=== PATIENT | female | born 1980 | race Caucasian/White ===

== ENCOUNTER 2023-10-17 22:39 | Inpatient (IN) | payer OTHER ==
[2023-10-17] MEDS: LORazepam 2 MG/ML INJ IV STA ×2 (23:00→23:17)
[2023-10-17] MEDS: SODIUM CHLORIDE 0.9% 1,000 ML IV ONE (23:00)
[2023-10-17 23:02] LABS: Glucose,Whole Blood 273 mg/dL (70-110)
[2023-10-17 23:11] LABS: Basophils % (A) 0 %; Eosinophils # (A) 0.1 k/uL (0-0.7); Eosinophils % (A) 1 %; HGB 18.4 gm/dL (11.4-16.0); Lymphocytes # (A) 1.2 k/uL (1.0-4.8); Lymphocytes % (A) 8 %; MCH 32.8 pg (25.0-35.0); MCHC 34.8 g/dL (31.0-37.0); MCV 94.2 fL (80.0-100.0); Mean Platelet Volume 7.9; Monocytes # (A) 0.4 k/uL (0-1.0); Monocytes % (A) 3 %; Neutrophils # (A) 13.7 k/uL (1.3-7.7); Neutrophils % (A) 88 %; Platelet Count 474 k/uL (150-450); RBC 5.62 m/uL (3.80-5.40); RDW 12.5 % (11.5-15.5); WBC 15.6 k/uL (3.8-10.6)
[2023-10-17 23:17] LABS: VBG PH 7.5 (7.31-7.41)
[2023-10-17 23:23] LABS: INR 1.1 (<1.2); Partial Thromboplastin Time 24.6 sec (22.0-30.0); Prothrombin Time 12.3 sec (10.0-12.5)
[2023-10-17 23:25] LABS: ALT 164 U/L (4-34); AST 105 U/L (14-36); Acetaminophen <10.0 ug/mL; African American GFR (CKD) >90 (>60 ml/min/1.73 sqM); Albumin 5.4 g/dL (3.5-5.0); Alcohol <10 mg/dL; Alkaline Phosphatase 179 U/L (38-126); Anion Gap 22 mmol/L; Blood Urea Nitrogen 26 mg/dL (7-17); Carbon Dioxide 23 mmol/L (22-30); Chloride 98 mmol/L (98-107); Glucose 301 mg/dL (74-99); Non-African American GFR(CKD) >90 (>60 ml/min/1.73 sqM); Potassium 3.7 mmol/L (3.5-5.1); Salicylate <1.0 mg/dL; Sodium 143 mmol/L (137-145); Total Bilirubin 0.5 mg/dL (0.2-1.3); Total Protein 10.6 g/dL (6.3-8.2)
[2023-10-17] MEDS ORDERED: VANCOMYCIN IV PER PHARMACY 1 EACH MISC MISCELLANE PRN (23:37)
[2023-10-18] MEDS: LORazepam 2 MG/ML INJ IV STA ×2 (00:17→00:51)
[2023-10-18] MEDS: SODIUM CHLORIDE 0.9% 1,000 ML IV STA ×2 (00:27→01:11)
[2023-10-18] MEDS: PIPERACILLIN-TAZOBACTAM 3.375 GM in SODIUM CHLORIDE 0.9% 100 ML IVPB STA (00:27)
[2023-10-18] MEDS: VANCOMYCIN 1,000 MG in SODIUM CHLORIDE 0.9% 250 ML IVPB STA (01:02)
[2023-10-18 01:05] LABS: Appearance,Urine Clear (Clear); Bilirubin,Urine Negative (Negative); Blood,Urine Moderate (Negative); Color,Urine Colorless; Glucose,Urine (UA) 2+ (Negative); Hyaline Casts,Urine 3 /lpf (0-2); Ketones,Urine Negative (Negative); Leukocyte Esterase,Urine Negative (Negative); Mucus,Urine Rare /hpf; Nitrite,Urine Positive (Negative); Protein,Urine 2+ (Negative); RBC,Urine 6 /hpf (0-5); Squamous Epithelial Cell,Urine 11 /hpf (0-4); Urobilinogen,Urine <2.0 mg/dL (<2.0); WBC,Urine 4 /hpf (0-5)
[2023-10-18 01:06] LABS: Amphetamine Screen,Urine Detected (NotDetected); Barbiturate Screen,Urine Not Detected (NotDetected); Benzodiazepines Screen,Urine Detected (NotDetected); Cocaine Screen,Urine Detected (NotDetected); Methadone Screen, Urine Not Detected (NotDetected); Opiate Screen,Urine Not Detected (NotDetected); Oxycodone Screen, Urine Not Detected (NotDetected); Phencyclidine Screen,Urine Not Detected (NotDetected); Tricyclic Antidepressant,Urine Not Detected (NotDetected); Urn Cannabinoid Scrn Not Detected (NotDetected)
--- NOTE | 2023-10-18 01:09 | XR ---
EXAM: XR Chest, 2 Views CLINICAL HISTORY: ITS.REASON XR Reason: altered mental status TECHNIQUE: Frontal and lateral views of the chest. COMPARISON: No relevant prior studies available. FINDINGS: Lungs: Unremarkable. No consolidation. Pleural space: Unremarkable. No pneumothorax. Heart: Unremarkable. No cardiomegaly. Mediastinum: Unremarkable. Normal mediastinal contour. Bones/joints: Unremarkable. No acute fracture. IMPRESSION: Normal chest x-rays.
[2023-10-18 01:12] LABS: Specific Gravity,Urine >1.050 (1.001-1.035)
[2023-10-18 01:13] LABS: Bacteria,Urine Occasional /hpf
--- NOTE | 2023-10-18 01:20 | CT ---
EXAM: CT Head Without Intravenous Contrast CLINICAL HISTORY: ITS.REASON CT Reason: Altered mental status TECHNIQUE: Axial computed tomography images of the head/brain without intravenous contrast. CTDI is 49.2 mGy and DLP is 1095.4 mGy-cm. This CT exam was performed using one or more of the following dose reduction techniques: automated exposure control, adjustment of the mA and/or kV according to patient size, and/or use of iterative reconstruction technique. COMPARISON: No relevant prior studies available. FINDINGS: Brain: Unremarkable. No hemorrhage. No significant white matter disease. No edema. Ventricles: Unremarkable. No ventriculomegaly. Bones/joints: Unremarkable. No acute fracture. Soft tissues: Unremarkable. Sinuses: Unremarkable as visualized. No acute sinusitis. Mastoid air cells: Unremarkable as visualized. No mastoid effusion. IMPRESSION: Normal head/brain CT.
--- NOTE | 2023-10-18 01:23 | CT ---
ADDENDUM - Added by Maxi Das MD on 10/18/2023 2:03 AM (-08:00) EXAM: CT Chest With Intravenous Contrast CLINICAL HISTORY: ITS.REASON CT Reason: pain, eval aorta, hypertensive TECHNIQUE: Axial computed tomographic images of the chest with intravenous contrast. CTDI is 1081.1 mGy and DLP is 18.7 mGy-cm. This CT exam was performed using one or more of the following dose reduction techniques: automated exposure control, adjustment of the mA and/or kV according to patient size, and/or use of iterative reconstruction technique. COMPARISON: No relevant prior studies available. FINDINGS: VASCULATURE: Thoracic aorta is unremarkable without dissection, aneurysm, or occlusion. Pulmonary arteries are within normal limits. Lungs are clear without focal infiltrates or effusions. No acute osseous pathology. . Impression: Unremarkable exam EXAM: CT abdomen and Pelvis With Intravenous Contrast CLINICAL HISTORY: ITS.REASON CT Reason: pain, eval aorta, hypertensive TECHNIQUE: Axial computed tomographic images of the abdomen and pelvis with intravenous contrast. CTDI is 1081.1 mGy and DLP is 18.7 mGy-cm. This CT exam was performed using one or more of the following dose reduction techniques: automated exposure control, adjustment of the mA and/or kV according to patient size, and/or use of iterative reconstruction technique. COMPARISON: No relevant prior studies available. FINDINGS: VASCULATURE: Celiac, superior mesenteric and renal arteries are widely patent and unremarkable. Right iliac arteries: No acute findings. No occlusion or significant stenosis. Right femoral/popliteal arteries: No acute findings. No occlusion or significant stenosis. . Left iliac arteries: No acute findings. No occlusion or significant stenosis. Left femoral/popliteal arteries: No acute findings. No occlusion or significant stenosis. PELVIS: Bowel: Unremarkable. No obstruction. No mucosal thickening. Appendix: No findings to suggest acute appendicitis. Bladder: Unremarkable. No mass. Reproductive: Unremarkable as visualized. PELVIS and LOWER EXTREMITIES: Intraperitoneal space: Unremarkable. No significant fluid collection. No free air. Bones/joints: No acute fracture. No dislocation. Soft tissues: Unremarkable. Lymph nodes: Unremarkable. No enlarged lymph nodes. IMPRESSION: Normal arteries of the abdomen and pelvis. EXAM: CT Pelvis With Runoff to the Bilateral Lower Extremities With Intravenous Contrast CLINICAL HISTORY: ITS.REASON CT Reason: pain, eval aorta, hypertensive TECHNIQUE: Axial computed tomographic images of the pelvis and bilateral lower extremities with intravenous contrast. CTDI is 1081.1 mGy and DLP is 18. 7 mGy-cm. This CT exam was performed using one or more of the following dose reduction techniques: automated exposure control, adjustment of the mA and/or kV according to patient size, and/or use of iterative reconstruction technique. COMPARISON: No relevant prior studies available. FINDINGS: VASCULATURE: Right iliac arteries: No acute findings. No occlusion or significant stenosis. Right femoral/popliteal arteries: No acute findings. No occlusion or significant stenosis. Right calf/foot arteries: No acute findings. No occlusion or significant stenosis. Left iliac arteries: No acute findings. No occlusion or significant stenosis. Left femoral/popliteal arteries: No acute findings. No occlusion or significant stenosis. Left calf/foot arteries: No acute findings. No occlusion or significant stenosis. PELVIS: Gallbladder and bile ducts: Postoperative changes prior cholecystectomy. Bowel: Unremarkable. No obstruction. No mucosal thickening. Appendix: No findings to suggest acute appendicitis. Bladder: Unremarkable. No mass. Reproductive: Unremarkable as visualized. PELVIS and LOWER EXTREMITIES: Intraperitoneal space: Unremarkable. No significant fluid collection. No free air. Bones/joints: No acute fracture. No dislocation. Soft tissues: Unremarkable. Lymph nodes: Unremarkable. No enlarged lymph nodes. IMPRESSION: No acute findings in the arteries of the pelvis or bilateral lower extremities. EXAM: CT Pelvis With Runoff to the Bilateral Lower Extremities With Intravenous Contrast CLINICAL HISTORY: ITS.REASON CT Reason: pain, eval aorta, hypertensive TECHNIQUE: Axial computed tomographic images of the pelvis and bilateral lower extremities with intravenous contrast. CTDI is 1081.1 mGy and DLP is 18. 7 mGy-cm. This CT exam was performed using one or more of the following dose reduction techniques: automated exposure control, adjustment of the mA and/or kV according to patient size, and/or use of iterative reconstruction technique. COMPARISON: No relevant prior studies available. FINDINGS: VASCULATURE: Right iliac arteries: No acute findings. No occlusion or significant stenosis. Right femoral/popliteal arteries: No acute findings. No occlusion or significant stenosis. Right calf/foot arteries: No acute findings. No occlusion or significant stenosis. Left iliac arteries: No acute findings. No occlusion or significant stenosis. Left femoral/popliteal arteries: No acute findings. No occlusion or significant stenosis. Left calf/foot arteries: No acute findings. No occlusion or significant stenosis. PELVIS: Bowel: Unremarkable. No obstruction. No mucosal thickening. Appendix: No findings to suggest acute appendicitis. Bladder: Unremarkable. No mass. Reproductive: Unremarkable as visualized. PELVIS and LOWER EXTREMITIES: Intraperitoneal space: Unremarkable. No significant fluid collection. No free air. Bones/joints: No acute fracture. No dislocation. Soft tissues: Unremarkable. Lymph nodes: Unremarkable. No enlarged lymph nodes. IMPRESSION: Normal arteries of the pelvis and bilateral lower extremities. <MYCVCSECTION> Communications: 10/18/23 02:02 Call From [facility] on 10/17 01:55 (-05:00)
--- NOTE | 2023-10-18 01:48 | ED ---
General Adult HPI - General Chief complaint: Altered Mental Status Stated complaint: AMS Time Seen by Provider: 10/17/23 22:48 Source: patient, EMS, RN notes reviewed, old records reviewed Mode of arrival: EMS Limitations: no limitations - History of Present Illness Initial comments: Is a 43-year-old female with past medical history remarkable for polysubstance abuse presents emergency department for altered mental status. [facility]. Has been there for approximately 1 day. Has a history of cocaine abuse, meth abuse, opiate abuse. Patient is currently alert and oriented x 2. Unknown what year it is. States she has chronic body pain. Would not answer when she last used any drugs. Possible concern for drug use despite being at [facility]. Was found to be hypertensive, confused and was sent here for further evaluation. Did receive a dose of clonidine prior to transfer. - Related Data Home Medications Medication Instructions Recorded Confirmed DAPTOmycin [Cubicin] 400 mg IV DAILY 07/28/15 08/26/15 Previous Rx's Medication Instructions Recorded Ibuprofen [Motrin] 400 mg PO Q8H PRN #0 07/16/15 Nicotine 14Mg/24Hr Patch [Habitrol] 1 patch TRANSDERM DAILY #30 patch 07/16/15 Nystatin 100,000Unit/gm Cream 1 applic TOPICAL BID applic 07/16/15 [Mycostatin Cream] Allergies Allergy/AdvReac Type Severity Reaction Status Date / Time codeine Allergy Nausea & Verified 08/26/15 17:27 Vomiting lidocaine Allergy Anaphylaxis Verified 08/26/15 17:27 Review of Systems ROS Statement: Those systems with pertinent positive or pertinent negative responses have been documented in the HPI. Review of Systems: CONST: Denies fever EYES: Denies blurry vision ENT: Denies nasal congestion C/V: Denies Chest pain RESP: Denies shortness of breath GI: Denies abdominal pain : Denies dysuria SKIN: Denies rash. MSK: Denies joint pain. NEURO: Denies headache ROS Other: All systems not noted in ROS Statement are negative. Past Medical History Past Medical History: No Reported History, Seizure Disorder Additional Past Medical History / Comment(s): bilateral torn rotator cuffs surgery 2009, bilateral carpal tunnel. MRSA infection Right 5th toe. Open wound right 5th toe History of Any Multi-Drug Resistant Organisms: MRSA Date of last positivie culture/infection: 07/10/2015 MDRO Source:: Right foot fifth digit Past Surgical History: Appendectomy, Section, Cholecystectomy, Orthopedic Surgery Additional Past Surgical History / Comment(s): EPILYPSY, BILATERAL TORN ROTATOR CUFFS Past Anesthesia/Blood Transfusion Reactions: No Reported Reaction Past Psychological History: No Psychological Hx Reported Smoking Status: Vaper Past Alcohol Use History: Rare Past Drug Use History: None Reported - Past Family History Father Family Medical History: CVA/TIA Additional Family Medical History / Comment(s): 2011 Mother Family Medical History: No Reported History Additional Family Medical History / Comment(s): arthritis General Exam - General Exam Comments Initial Comments: General: Appears anxious, agitated. HEAD: Normal with no signs of head trauma. EYES: PERRLA, EOMI, conjunctiva normal, no discharge. Pupils are 2 mm and equal bilaterally. ENT: Hearing grossly intact, normal oropharynx. Dry mucous membranes RESPIRATORY: Clear breath sounds bilaterally. No wheezes, rales, or rhonchi. C/V: Tachycardic with a regular rhythm.. S1 and S2 auscultated, no edema, peripheral pulses 2+ and intact throughout ABD: Abd is soft, nontender, nondistended EXT: Normal range of motion, no obvious deformity SKIN: Diffuse skin urban on arms likely from prior drug use. NEURO: Alert and oriented x 2. No focal neurological deficits. Moving all 4 extremities without issue. Is following some basic commands. Does seem confused. Limitations: no limitations Course Vital Signs 10/17/23 10/17/23 10/18/23 22:40 23:14 00:47 Temperature 99.1 F Pulse Rate 105 H 93 99 Respiratory 20 22 20 Rate Blood Pressure 212/162 203/143 163/72 O2 Sat by Pulse 100 100 99 Oximetry 10/18/23 03:45 Temperature Pulse Rate 101 H Respiratory 22 Rate Blood Pressure 110/73 O2 Sat by Pulse 99 Oximetry Procedures - Sepsis Sepsis Focused Exam #1 Time Sepsis Criteria Met: 23:38 Sepsis Focused Exam Date: 10/18/23 Sepsis Focused Exam Time: 01:38 Sepsis Focused Exam Complete: Yes Vital Signs & RN Notes Reviewed: Yes Capillary Refill: > 2 Seconds: Fingers, Toes Peripheral Pulses: Normal: Radial (R), Radial (L) Skin Color: Normal for Patient Respiratory Exam: normal lung sounds Cardiovascular Exam: regular rate, normal rhythm Medical Decision Making - Medical Decision Making Was pt. sent in by a medical professional or institution (TOMMIE Govea, [employer] BLENDER, urgent care, hospital, or custodial...) When possible be specific @ -No Did you speak to anyone other than the patient for history (EMS, parent, family, police, friend...)? What history was obtained from this source @ -Nursing staff spoke with staff at [facility]. Did you review nursing and triage notes (agree or disagree)? Why? @ -I reviewed and agree with nursing and triage notes Were old charts reviewed (outside hosp., previous admission, EMS record, old EKG, old radiological studies, urgent care reports/EKG's, custodial records)? Report findings @ -Old charts reviewed Differential Diagnosis (chest pain, altered mental status, abdominal pain women, abdominal pain men, vaginal bleeding, weakness, fever, dyspnea, syncope, headache, dizziness, GI bleed, back pain, seizure, CVA, palpatations, mental health, musculoskeletal)? @ -Differential Altered Mental Status: Hypoglycemia, DKA, hypercapnia, ETOH, overdose, CO poisoning, trauma, myxedema coma, HTN encephalopathy, infection, encephalitis, psychosis, intercranial hemorrhage, hepatic encephalopathy, meningitis, CVA, this is not meant to be an all-inclusive list EKG interpreted by me (3pts min.). @ -As above X-rays interpreted by me (1pt min.). @ -Chest x-ray shows no obvious acute cardiopulmonary process. CT interpreted by me (1pt min.). @ -CT brain reveals no obvious acute intracranial process or injury. CT angiogram of the chest abdomen pelvis shows no obvious acute process at this time. U/S interpreted by me (1pt. min.). @ -None done What testing was considered but not performed or refused? (CT, X-rays, U/S, labs)? Why? @ -None What meds were considered but not given or refused? Why? @ -Antihypertensive medications were considered however I do believe that hypertension likely secondary to polysubstance abuse and we will treat with Ativan at this time. Has a history of cocaine abuse and we will avoid beta- blockers. Did you discuss the management of the patient with other professionals (professionals i.e. , TOMMIE, [employer] BLENDER, lab, RT, psych nurse, social insurance administrator, wood and wood products labourer, teacher, training systems officer, rehabilitation case coordinator)? Give summary @ -Discussed with the city call admitting physician, Dr. Haro who accepted the patient onto their service. Was smoking cessation discussed for >3mins.? @ -No Was critical care preformed (if so, how long)? @ -Yes, 38 minutes Were there social determinants of health that impacted care today? How? (Homelessness, low income, unemployed, alcoholism, drug addiction, transportation, low edu. Level, literacy, decrease access to med. care, long term, rehab)? @ -No Was there de-escalation of care discussed even if they declined (Discuss DNR or withdrawal of care, Hospice)? DNR status @ -No What co-morbidities impacted this encounter? (DM, HTN, Smoking, COPD, CAD, Cancer, CVA, ARF, Chemo, Hep., AIDS, mental health diagnosis, sleep apnea, morbid obesity)? @ -Polysubstance abuse Was patient admitted / discharged? Hospital course, mention meds given and route, prescriptions, significant lab abnormalities, going to OR and other pertinent info. @ -Presents with altered mentation. Is hypertensive and tachycardic. Appears significantly dehydrated. Patient will be administered multiple fluid boluses, as well as Ativan for some mild agitation as well as her hypertension. Patient was in agreement this plan. She is confused to year. She is hypertensive on arrival but I do believe this is all likely secondary to her polysubstance abuse. She does have a history of cocaine abuse and therefore beta-blockers will be avoided. We will attempt to treat hypertension initially with just benzodiazepines. He did respond well to these. Systolics improved to the 150s to 160s. EKG shows nonspecific findings. Laboratory studies remarkable for what appears to be hemoconcentration with elevated white count, hemoglobin, as well as platelets. Lactic acid is elevated at 7.0. Troponin mildly elevated at 0.087. LFTs mildly elevated and nonspecific. Remainder the labs unremarkable other than positive UDS for amphetamines, meth, benzos, cocaine. Urinalysis is positive for blood and nitrites but negative for other sources of infection including no significant white blood cell count. Acetone is negative. Patient CT brain, CT angiogram of the aorta unremarkable. Chest x-ray unremarkable. Patient met sepsis criteria at 2338. Patient has received 1 L fluid bolus and will receive an additional liter and be placed on maintenance fluids which will meet the 30 cc/kg fluid bolus. Broad-spectrum antibiotics will be initiated. Lactic acid is 7 and we will repeat it. Blood cultures obtained and sent. At this time, patient will be admitted to the hospital. I will hold off with placement orders for the patient as we will repeat the lactic acid which I believe is likely secondary to dehydration and polysubstance abuse. Cannot rule out sepsis at this time and patient is being covered for it with broad-spectrum antibiotics. Patient has received multiple doses of Ativan which has helped with her vital signs as well as her slight agitation. She is still able to follow basic commands. She is still confused. She will be admitted at this ti ny. I spoke with the admitting physician, Dr. Haro who accepted the patient. Neurology consulted for altered mentation. Troponin slightly elevated but I do believe it is likely secondary to her drug abuse, dehydration, as well as possible sepsis. Will continue to trend. Cardiology consulted. Repeat lactic acid improved to 2.6. Undiagnosed new problem with uncertain prognosis? @ -No Drug Therapy requiring intensive monitoring for toxicity (Heparin, Nitro, Insulin, Cardizem)? @ -No Were any procedures done? @ -No Diagnosis/symptom? @ -Sepsis, polysubstance abuse, altered mental status, dehydration, elevated troponin, hypertension Acute, or Chronic, or Acute on Chronic? @ -Acute Uncomplicated (without systemic symptoms) or Complicated (systemic symptoms)? @ -Complicated Side effects of treatment? @ -No Exacerbation, Progression, or Severe Exacerbation? @ -No Poses a threat to life or bodily function? How? (Chest pain, USA, MT, pneumonia, PE, COPD, DKA, ARF, appy, cholecystitis, CVA, Diverticulitis, Homicidal, Suicidal, threat to staff... and all critical care pts) @ -Yes - Lab Data Result diagrams: 10/17/23 23:00 10/17/23 23:00 Lab Results 10/17/23 10/17/23 10/17/23 Range/Units 23:00 23:00 23:00 WBC 15.6 H (3.8-10.6) k/uL RBC 5.62 H (3.80-5.40) m/uL Hgb 18.4 H (11.4-16.0) gm/dL Hct 53.0 H (34.0-46.0) % MCV 94.2 (80.0-100.0) fL MCH 32.8 (25.0-35.0) pg MCHC 34.8 (31.0-37.0) g/dL RDW 12.5 (11.5-15.5) % Plt Count 474 H (150-450) k/uL MPV 7.9 Neutrophils % 88 % Lymphocytes % 8 % Monocytes % 3 % Eosinophils % 1 % Basophils % 0 % Neutrophils # 13.7 H (1.3-7.7) k/uL Lymphocytes # 1.2 (1.0-4.8) k/uL Monocytes # 0.4 (0-1.0) k/uL Eosinophils # 0.1 (0-0.7) k/uL Basophils # 0.0 (0-0.2) k/uL PT 12.3 (10.0-12.5) sec INR 1.1 (<1.2) APTT 24.6 (22.0-30.0) sec VBG pH (7.31-7.41) VBG pCO2 (37-51) mmHg VBG HCO3 (24-28) mmol/L Sodium (137-145) mmol/L Potassium (3.5-5.1) mmol/L Chloride (98-107) mmol/L Carbon Dioxide (22-30) mmol/L Anion Gap mmol/L BUN (7-17) mg/dL Creatinine (0.52-1.04) mg/dL Est GFR (CKD-EPI)AfAm (>60 ml/min/1.73 sqM) Est GFR (CKD-EPI)NonAf (>60 ml/min/1.73 sqM) Glucose (74-99) mg/dL POC Glucose (mg/dL) (70-110) mg/dL POC Glu Supervisor Pipe Finishing ID Lactic Ac Sepsis Rflx Plasma Lactic Acid Louie (0.7-2.0) mmol/L Calcium (8.4-10.2) mg/dL Total Bilirubin (0.2-1.3) mg/dL AST (14-36) U/L ALT (4-34) U/L Alkaline Phosphatase (38-126) U/L Ammonia (<30) umol/L Troponin I (0.000-0.034) ng/mL Total Protein (6.3-8.2) g/dL Albumin (3.5-5.0) g/dL Urine Color Urine Appearance (Clear) Urine pH (5.0-8.0) Ur Specific [place] (1.001-1.035) Urine Protein (Negative) Urine Glucose (UA) (Negative) Urine Ketones (Negative) Urine Blood (Negative) Urine Nitrite (Negative) Urine Bilirubin (Negative) Urine Urobilinogen (<2.0) mg/dL Ur Leukocyte Esterase (Negative) Urine RBC (0-5) /hpf Urine WBC (0-5) /hpf Ur Squamous Epith Cells (0-4) /hpf Urine Bacteria (None) /hpf Hyaline Casts (0-2) /lpf Urine Mucus (None) /hpf Salicylates mg/dL Urine Opiates Screen Not Detected (NotDetected) Ur Oxycodone Screen Not Detected (NotDetected) Urine Methadone Screen Not Detected (NotDetected) Acetaminophen ug/mL Ur Barbiturates Screen Not Detected (NotDetected) U Tricyclic Antidepress Not Detected (NotDetected) Ur Phencyclidine Scrn Not Detected (NotDetected) Ur Amphetamines Screen Detected H (NotDetected) U Methamphetamines Scrn Detected H (NotDetected) U Benzodiazepines Scrn Detected H (NotDetected) Urine Cocaine Screen Detected H (NotDetected) U Marijuana (THC) Screen Not Detected (NotDetected) Serum Alcohol mg/dL Acetone, Qual (Negative) Influenza Type A (PCR) (Not Detectd) Influenza Type B (PCR) (Not Detectd) RSV (PCR) (Not Detectd) SARS-CoV-2 (PCR) (Not Detectd) 10/17/23 10/17/23 10/17/23 Range/Units 23:00 23:00 23:00 WBC (3.8-10.6) k/uL RBC (3.80-5.40) m/uL Hgb (11.4-16.0) gm/dL Hct (34.0-46.0) % MCV (80.0-100.0) fL MCH (25.0-35.0) pg MCHC (31.0-37.0) g/dL RDW (11.5-15.5) % Plt Count (150-450) k/uL MPV Neutrophils % % Lymphocytes % % Monocytes % % Eosinophils % % Basophils % % Neutrophils # (1.3-7.7) k/uL Lymphocytes # (1.0-4.8) k/uL Monocytes # (0-1.0) k/uL Eosinophils # (0-0.7) k/uL Basophils # (0-0.2) k/uL PT (10.0-12.5) sec INR (<1.2) APTT (22.0-30.0) sec VBG pH (7.31-7.41) VBG pCO2 (37-51) mmHg VBG HCO3 (24-28) mmol/L Sodium 143 (137-145) mmol/L Potassium 3.7 (3.5-5.1) mmol/L Chloride 98 (98-107) mmol/L Carbon Dioxide 23 (22-30) mmol/L Anion Gap 22 mmol/L BUN 26 H (7-17) mg/dL Creatinine 0.69 (0.52-1.04) mg/dL Est GFR (CKD-EPI)AfAm >90 (>60 ml/min/1.73 sqM) Est GFR (CKD-EPI)NonAf >90 (>60 ml/min/1.73 sqM) Glucose 301 H (74-99) mg/dL POC Glucose (mg/dL) 273 H (70-110) mg/dL POC Glu Supervisor P[employer] Finishing ID Benjie Garcia Lactic Ac Sepsis Rflx Plasma Lactic Acid Louie (0.7-2.0) mmol/L Calcium 11.0 H (8.4-10.2) mg/dL Total Bilirubin 0.5 (0.2-1.3) mg/dL AST 105 H (14-36) U/L ALT 164 H (4-34) U/L Alkaline Phosphatase 179 H (38-126) U/L Ammonia (<30) umol/L Troponin I 0.087 H* (0.000-0.034) ng/mL Total Protein 10.6 H (6.3-8.2) g/dL Albumin 5.4 H (3.5-5.0) g/dL Urine Color Urine Appearance (Clear) Urine pH (5.0-8.0) Ur Specific [place] (1.001-1.035) Urine Protein (Negative) Urine Glucose (UA) (Negative) Urine Ketones (Negative) Urine Blood (Negative) Urine Nitrite (Negative) Urine Bilirubin (Negative) Urine Urobilinogen (<2.0) mg/dL Ur Leukocyte Esterase (Negative) Urine RBC (0-5) /hpf Urine WBC (0-5) /hpf Ur Squamous Epith Cells (0-4) /hpf Urine Bacteria (None) /hpf Hyaline Casts (0-2) /lpf Urine Mucus (None) /hpf Salicylates <1.0 mg/dL Urine Opiates Screen (NotDetected) Ur Oxycodone Screen (NotDetected) Urine Methadone Screen (NotDetected) Acetaminophen <10.0 ug/mL Ur Barbiturates Screen (NotDetected) U Tricyclic Antidepress (NotDetected) Ur Phencyclidine Scrn (NotDetected) Ur Amphetamines Screen (NotDetected) U Methamphetamines Scrn (NotDetected) U Benzodiazepines Scrn (NotDetected) Urine Cocaine Screen (NotDetected) U Marijuana (THC) Screen (NotDetected) Serum Alcohol <10 mg/dL Acetone, Qual (Negative) Influenza Type A (PCR) (Not Detectd) Influenza Type B (PCR) (Not Detectd) RSV (PCR) (Not Detectd) SARS-CoV-2 (PCR) (Not Detectd) 10/17/23 10/17/23 10/17/23 Range/Units 23:02 23:02 23:02 WBC (3.8-10.6) k/uL RBC (3.80-5.40) m/uL Hgb (11.4-16.0) gm/dL Hct (34.0-46.0) % MCV (80.0-100.0) fL MCH (25.0-35.0) pg MCHC (31.0-37.0) g/dL RDW (11.5-15.5) % Plt Count (150-450) k/uL MPV Neutrophils % % Lymphocytes % % Monocytes % % Eosinophils % % Basophils % % Neutrophils # (1.3-7.7) k/uL Lymphocytes # (1.0-4.8) k/uL Monocytes # (0-1.0) k/uL Eosinophils # (0-0.7) k/uL Basophils # (0-0.2) k/uL PT (10.0-12.5) sec INR (<1.2) APTT (22.0-30.0) sec VBG pH 7.50 H (7.31-7.41) VBG pCO2 31 L (37-51) mmHg VBG HCO3 24 (24-28) mmol/L Sodium (137-145) mmol/L Potassium (3.5-5.1) mmol/L Chloride (98-107) mmol/L Carbon Dioxide (22-30) mmol/L Anion Gap mmol/L BUN (7-17) mg/dL Creatinine (0.52-1.04) mg/dL Est GFR (CKD-EPI)AfAm (>60 ml/min/1.73 sqM) Est GFR (CKD-EPI)NonAf (>60 ml/min/1.73 sqM) Glucose (74-99) mg/dL POC Glucose (mg/dL) (70-110) mg/dL POC Glu Supervisor Pipe Finishing ID Lactic Ac Sepsis Rflx Plasma Lactic Acid Louie 7.0 H* (0.7-2.0) mmol/L Calcium (8.4-10.2) mg/dL Total Bilirubin (0.2-1.3) mg/dL AST (14-36) U/L ALT (4-34) U/L Alkaline Phosphatase (38-126) U/L Ammonia 14 (<30) umol/L Troponin I (0.000-0.034) ng/mL Total Protein (6.3-8.2) g/dL Albumin (3.5-5.0) g/dL Urine Color Colorless Urine Appearance Clear (Clear) Urine pH 7.0 (5.0-8.0) Ur Specific [place] >1.050 H (1.001-1.035) Urine Protein 2+ H (Negative) Urine Glucose (UA) 2+ H (Negative) Urine Ketones Negative (Negative) Urine Blood Moderate H (Negative) Urine Nitrite Positive H (Negative) Urine Bilirubin Negative (Negative) Urine Urobilinogen <2.0 (<2.0) mg/dL Ur Leukocyte Esterase Negative (Negative) Urine RBC 6 H (0-5) /hpf Urine WBC 4 (0-5) /hpf Ur Squamous Epith Cells 11 H (0-4) /hpf Urine Bacteria Occasional H (None) /hpf Hyaline Casts 3 H (0-2) /lpf Urine Mucus Rare H (None) /hpf Salicylates mg/dL Urine Opiates Screen (NotDetected) Ur Oxycodone Screen (NotDetected) Urine Methadone Screen (NotDetected) Acetaminophen ug/mL Ur Barbiturates Screen (NotDetected) U Tricyclic Antidepress (NotDetected) Ur Phencyclidine Scrn (NotDetected) Ur Amphetamines Screen (NotDetected) U Methamphetamines Scrn (NotDetected) U Benzodiazepines Scrn (NotDetected) Urine Cocaine Screen (NotDetected) U Marijuana (THC) Screen (NotDetected) Serum Alcohol mg/dL Acetone, Qual (Negative) Influenza Type A (PCR) (Not Detectd) Influenza Type B (PCR) (Not Detectd) RSV (PCR) (Not Detectd) SARS-CoV-2 (PCR) (Not Detectd) 10/17/23 10/18/23 10/18/23 Range/Units 23:36 00:00 00:43 WBC (3.8-10.6) k/uL RBC (3.80-5.40) m/uL Hgb (11.4-16.0) gm/dL Hct (34.0-46.0) % MCV (80.0-100.0) fL MCH (25.0-35.0) pg MCHC (31.0-37.0) g/dL RDW (11.5-15.5) % Plt Count (150-450) k/uL MPV Neutrophils % % Lymphocytes % % Monocytes % % Eosinophils % % Basophils % % Neutrophils # (1.3-7.7) k/uL Lymphocytes # (1.0-4.8) k/uL Monocytes # (0-1.0) k/uL Eosinophils # (0-0.7) k/uL Basophils # (0-0.2) k/uL PT (10.0-12.5) sec INR (<1.2) APTT (22.0-30.0) sec VBG pH (7.31-7.41) VBG pCO2 (37-51) mmHg VBG HCO3 (24-28) mmol/L Sodium (137-145) mmol/L Potassium (3.5-5.1) mmol/L Chloride (98-107) mmol/L Carbon Dioxide (22-30) mmol/L Anion Gap mmol/L BUN (7-17) mg/dL Creatinine (0.52-1.04) mg/dL Est GFR (CKD-EPI)AfAm (>60 ml/min/1.73 sqM) Est GFR (CKD-EPI)NonAf (>60 ml/min/1.73 sqM) Glucose (74-99) mg/dL POC Glucose (mg/dL) (70-110) mg/dL POC Glu Supervisor Pipe Finishing ID Lactic Ac Sepsis Rflx Y Plasma Lactic Acid Louie (0.7-2.0) mmol/L Calcium (8.4-10.2) mg/dL Total Bilirubin (0.2-1.3) mg/dL AST (14-36) U/L ALT (4-34) U/L Alkaline Phosphatase (38-126) U/L Ammonia (<30) umol/L Troponin I (0.000-0.034) ng/mL Total Protein (6.3-8.2) g/dL Albumin (3.5-5.0) g/dL Urine Color Urine Appearance (Clear) Urine pH (5.0-8.0) Ur Specific [place] (1.001-1.035) Urine Protein (Negative) Urine Glucose (UA) (Negative) Urine Ketones (Negative) Urine Blood (Negative) Urine Nitrite (Negative) Urine Bilirubin (Negative) Urine Urobilinogen (<2.0) mg/dL Ur Leukocyte Esterase (Negative) Urine RBC (0-5) /hpf Urine WBC (0-5) /hpf Ur Squamous Epith Cells (0-4) /hpf Urine Bacteria (None) /hpf Hyaline Casts (0-2) /lpf Urine Mucus (None) /hpf Salicylates mg/dL Urine Opiates Screen (NotDetected) Ur Oxycodone Screen (NotDetected) Urine Methadone Screen (NotDetected) Acetaminophen ug/mL Ur Barbiturates Screen (NotDetected) U Tricyclic Antidepress (NotDetected) Ur Phencyclidine Scrn (NotDetected) Ur Amphetamines Screen (NotDetected) U Methamphetamines Scrn (NotDetected) U Benzodiazepines Scrn (NotDetected) Urine Cocaine Screen (NotDetected) U Marijuana (THC) Screen (NotDetected) Serum Alcohol mg/dL Acetone, Qual Negative (Negative) Influenza Type A (PCR) Not Detected (Not Detectd) Influenza Type B (PCR) Not Detected (Not Detectd) RSV (PCR) Not Detected (Not Detectd) SARS-CoV-2 (PCR) Not Detected (Not Detectd) 10/18/23 10/18/23 Range/Units 02:20 02:57 WBC (3.8-10.6) k/uL RBC (3.80-5.40) m/uL Hgb (11.4-16.0) gm/dL Hct (34.0-46.0) % MCV (80.0-100.0) fL MCH (25.0-35.0) pg MCHC (31.0-37.0) g/dL RDW (11.5-15.5) % Plt Count (150-450) k/uL MPV Neutrophils % % Lymphocytes % % Monocytes % % Eosinophils % % Basophils % % Neutrophils # (1.3-7.7) k/uL Lymphocytes # (1.0-4.8) k/uL Monocytes # (0-1.0) k/uL Eosinophils # (0-0.7) k/uL Basophils # (0-0.2) k/uL PT (10.0-12.5) sec INR (<1.2) APTT (22.0-30.0) sec VBG pH (7.31-7.41) VBG pCO2 (37-51) mmHg VBG HCO3 (24-28) mmol/L Sodium (137-145) mmol/L Potassium (3.5-5.1) mmol/L Chloride (98-107) mmol/L Carbon Dioxide (22-30) mmol/L Anion Gap mmol/L BUN (7-17) mg/dL Creatinine (0.52-1.04) mg/dL Est GFR (CKD-EPI)AfAm (>60 ml/min/1.73 sqM) Est GFR (CKD-EPI)NonAf (>60 ml/min/1.73 sqM) Glucose (74-99) mg/dL POC Glucose (mg/dL) (70-110) mg/dL POC Glu Supervisor Pipe Finishing ID Lactic Ac Sepsis Rflx Y Plasma Lactic Acid Louie 2.6 H* (0.7-2.0) mmol/L Calcium (8.4-10.2) mg/dL Total Bilirubin (0.2-1.3) mg/dL AST (14-36) U/L ALT (4-34) U/L Alkaline Phosphatase (38-126) U/L Ammonia (<30) umol/L Troponin I (0.000-0.034) ng/mL Total Protein (6.3-8.2) g/dL Albumin (3.5-5.0) g/dL Urine Color Urine Appearance (Clear) Urine pH (5.0-8.0) Ur Specific [place] (1.001-1.035) Urine Protein (Negative) Urine Glucose (UA) (Negative) Urine Ketones (Negative) Urine Blood (Negative) Urine Nitrite (Negative) Urine Bilirubin (Negative) Urine Urobilinogen (<2.0) mg/dL Ur Leukocyte Esterase (Negative) Urine RBC (0-5) /hpf Urine WBC (0-5) /hpf Ur Squamous Epith Cells (0-4) /hpf Urine Bacteria (None) /hpf Hyaline Casts (0-2) /lpf Urine Mucus (None) /hpf Salicylates mg/dL Urine Opiates Screen (NotDetected) Ur Oxycodone Screen (NotDetected) Urine Methadone Screen (NotDetected) Acetaminophen ug/mL Ur Barbiturates Screen (NotDetected) U Tricyclic Antidepress (NotDetected) Ur Phencyclidine Scrn (NotDetected) Ur Amphetamines Screen (NotDetected) U Methamphetamines Scrn (NotDetected) U Benzodiazepines Scrn (NotDetected) Urine Cocaine Screen (NotDetected) U Marijuana (THC) Screen (NotDetected) Serum Alcohol mg/dL Acetone, Qual (Negative) Influenza Type A (PCR) (Not Detectd) Influenza Type B (PCR) (Not Detectd) RSV (PCR) (Not Detectd) SARS-CoV-2 (PCR) (Not Detectd) - EKG Data -: EKG Interpreted by Me EKG Comments: 12-lead Electrocardiogram Interpretation Note EKG was reviewed and interpreted by myself. 12-lead ECG performed at 2322 is interpreted by me as revealing normal sinus rhythm at a rate of 87 beats per minute. [place] is normal. NH interval is 121 ms, QRS duration is 90 ms, QTc is [address]-T segment depressions that are mild, however there is a good amount of baseline artifact.. R wave progression across the precordium was satisfactory.. Critical Care Time Critical Care Time: Yes Total Critical Care Time: 38 Disposition Clinical Impression: Altered mental status, Polysubstance abuse, Dehydration, Sepsis, Elevated troponin, Hypertension Disposition: ADMITTED IP TO THIS HOSP Condition: Serious Time of Disposition: 02:00
[2023-10-18] MEDS ORDERED: NALOXONE 0.4 MG/ML 1 ML VIAL IV PRN (02:58)
--- NOTE | 2023-10-18 05:43 | P.HPIM ---
History of Present Illness H&P Date: 10/18/23 Chief Complaint: Mental status 43-year-old female with polysubstance abuse Patient's seems to be confused currently at time of my evaluation she is sleeping difficult to arise, however was alert oriented x 2 earlier in the ED per their documentation history was obtained by talking to medical staff in the ED and discussing the case with ED doctor reviewing the chart. Patient has history of polysubstance abuse she has been at [facility] for a day staff was suspecting that she was still using drugs while there she was found to have altered mentation and was brought into the hospital for further evaluation no further history is obtainable at this time. Patient is noticed to have multiple entrance wounds and skin lesions over her hands suspicious for skin popping or IV drug use review of systems Unable to obtain due to patient mental status on exam Constitutional: Sleeping difficult to to wake up Eyes: Anicteric sclerae, moist conjunctiva, Pupils equal round reactive to light ENMT: NC/AT Neck: Supple, no masses, or JVD No carotid bruits No thyromegaly Lungs: Clear to auscultation Clear to percussion Normal respiratory effort, no accessory muscle use Cardiovascular: Heart regular in rate and rhythm, No murmurs, gallops, or rubs No peripheral edema Abdominal: Soft Nontender, no guarding, rebound or rigidity Abdomen moving with respiration Normoactive bowel sounds No hepatomegaly, No splenomegaly No palpable mass No abdominal wall hernia noted Skin: Multiple skin lesions over bilateral hands suspicious for skin popping or IV drug abuse. Swelling of the right hand Extremities: No digital cyanosis No clubbing Pedal pulses intact and symmetrical Radial pulses intact and symmetrical No calf tenderness Psychiatric: Patient sleeping difficult to arouse Neuro unable to obtain at this time patient uncooperative Past Medical History Past Medical History: No Reported History, Seizure Disorder Additional Past Medical History / Comment(s): bilateral torn rotator cuffs surgery 2009, bilateral carpal tunnel. MRSA infection Right 5th toe. Open wound right 5th toe History of Any Multi-Drug Resistant Organisms: MRSA Date of last positivie culture/infection: 07/10/2015 MDRO Source:: Right foot fifth digit Past Surgical History: Appendectomy, Section, Cholecystectomy, Orthopedic Surgery Additional Past Surgical History / Comment(s): EPILYPSY, BILATERAL TORN ROTATOR CUFFS Past Anesthesia/Blood Transfusion Reactions: No Reported Reaction Past Psychological History: No Psychological Hx Reported Smoking Status: Vaper Past Alcohol Use History: Rare Past Drug Use History: None Reported - Past Family History Father Family Medical History: CVA/TIA Additional Family Medical History / Comment(s): 2011 Mother Family Medical History: No Reported History Additional Family Medical History / Comment(s): arthritis Medications and Allergies Home Medications Medication Instructions Recorded Confirmed Type Ibuprofen [Motrin] 400 mg PO Q8H PRN #0 07/16/15 08/26/15 Rx Nicotine 14Mg/24Hr Patch [Habitrol] 1 patch TRANSDERM DAILY #30 patch 07/16/15 08/26/15 Rx Nystatin 100,000Unit/gm Cream 1 applic TOPICAL BID applic 07/16/15 08/26/15 Rx [Mycostatin Cream] DAPTOmycin [Cubicin] 400 mg IV DAILY 07/28/15 08/26/15 History Allergies Allergy/AdvReac Type Severity Reaction Status Date / Time codeine Allergy Nausea & Verified 08/26/15 17:27 Vomiting lidocaine Allergy Anaphylaxis Verified 08/26/15 17:27 Physical Exam Vitals: Vital Signs Temp Pulse Resp BP Pulse Ox 10/18/23 00:47 99 20 163/72 99 10/17/23 23:14 93 22 203/143 100 10/17/23 22:40 99.1 F 105 H 20 212/162 100 Intake and Output 10/17/23 10/17/23 10/18/23 14:59 22:59 06:59 Other: Weight 54.431 kg Results CBC & Chem 7: 10/17/23 23:00 10/17/23 23:00 Labs: Abnormal Lab Results - Last 24 Hours (Table) 10/17/23 10/17/23 10/17/23 Range/Units 23:00 23:00 23:00 WBC 15.6 H (3.8-10.6) k/uL RBC 5.62 H (3.80-5.40) m/uL Hgb 18.4 H (11.4-16.0) gm/dL Hct 53.0 H (34.0-46.0) % Plt Count 474 H (150-450) k/uL Neutrophils # 13.7 H (1.3-7.7) k/uL VBG pH (7.31-7.41) VBG pCO2 (37-51) mmHg BUN 26 H (7-17) mg/dL Glucose 301 H (74-99) mg/dL POC Glucose (mg/dL) (70-110) mg/dL Plasma Lactic Acid Louie (0.7-2.0) mmol/L Calcium 11.0 H (8.4-10.2) mg/dL AST 105 H (14-36) U/L ALT 164 H (4-34) U/L Alkaline Phosphatase 179 H (38-126) U/L Troponin I (0.000-0.034) ng/mL Total Protein 10.6 H (6.3-8.2) g/dL Albumin 5.4 H (3.5-5.0) g/dL Ur Specific [place] (1.001-1.035) Urine Protein (Negative) Urine Glucose (UA) (Negative) Urine Blood (Negative) Urine Nitrite (Negative) Urine RBC (0-5) /hpf Ur Squamous Epith Cells (0-4) /hpf Urine Bacteria (None) /hpf Hyaline Casts (0-2) /lpf Urine Mucus (None) /hpf Ur Amphetamines Screen Detected H (NotDetected) U Methamphetamines Scrn Detected H (NotDetected) U Benzodiazepines Scrn Detected H (NotDetected) Urine Cocaine Screen Detected H (NotDetected) 10/17/23 10/17/23 10/17/23 Range/Units 23:00 23:00 23:02 WBC (3.8-10.6) k/uL RBC (3.80-5.40) m/uL Hgb (11.4-16.0) gm/dL Hct (34.0-46.0) % Plt Count (150-450) k/uL Neutrophils # (1.3-7.7) k/uL VBG pH (7.31-7.41) VBG pCO2 (37-51) mmHg BUN (7-17) mg/dL Glucose (74-99) mg/dL POC Glucose (mg/dL) 273 H (70-110) mg/dL Plasma Lactic Acid Louie (0.7-2.0) mmol/L Calcium (8.4-10.2) mg/dL AST (14-36) U/L ALT (4-34) U/L Alkaline Phosphatase (38-126) U/L Troponin I 0.087 H* (0.000-0.034) ng/mL Total Protein (6.3-8.2) g/dL Albumin (3.5-5.0) g/dL Ur Specific [place] >1.050 H (1.001-1.035) Urine Protein 2+ H (Negative) Urine Glucose (UA) 2+ H (Negative) Urine Blood Moderate H (Negative) Urine Nitrite Positive H (Negative) Urine RBC 6 H (0-5) /hpf Ur Squamous Epith Cells 11 H (0-4) /hpf Urine Bacteria Occasional H (None) /hpf Hyaline Casts 3 H (0-2) /lpf Urine Mucus Rare H (None) /hpf Ur Amphetamines Screen (NotDetected) U Methamphetamines Scrn (NotDetected) U Benzodiazepines Scrn (NotDetected) Urine Cocaine Screen (NotDetected) 10/17/23 10/17/23 10/18/23 Range/Units 23:02 23:02 02:20 WBC (3.8-10.6) k/uL RBC (3.80-5.40) m/uL Hgb (11.4-16.0) gm/dL Hct (34.0-46.0) % Plt Count (150-450) k/uL Neutrophils # (1.3-7.7) k/uL VBG pH 7.50 H (7.31-7.41) VBG pCO2 31 L (37-51) mmHg BUN (7-17) mg/dL Glucose (74-99) mg/dL POC Glucose (mg/dL) (70-110) mg/dL Plasma Lactic Acid Louie 7.0 H* 2.6 H* (0.7-2.0) mmol/L Calcium (8.4-10.2) mg/dL AST (14-36) U/L ALT (4-34) U/L Alkaline Phosphatase (38-126) U/L Troponin I (0.000-0.034) ng/mL Total Protein (6.3-8.2) g/dL Albumin (3.5-5.0) g/dL Ur Specific [place] (1.001-1.035) Urine Protein (Negative) Urine Glucose (UA) (Negative) Urine Blood (Negative) Urine Nitrite (Negative) Urine RBC (0-5) /hpf Ur Squamous Epith Cells (0-4) /hpf Urine Bacteria (None) /hpf Hyaline Casts (0-2) /lpf Urine Mucus (None) /hpf Ur Amphetamines Screen (NotDetected) U Methamphetamines Scrn (NotDetected) U Benzodiazepines Scrn (NotDetected) Urine Cocaine Screen (NotDetected) 10/18/23 Range/Units 03:53 WBC (3.8-10.6) k/uL RBC (3.80-5.40) m/uL Hgb (11.4-16.0) gm/dL Hct (34.0-46.0) % Plt Count (150-450) k/uL Neutrophils # (1.3-7.7) k/uL VBG pH (7.31-7.41) VBG pCO2 (37-51) mmHg BUN (7-17) mg/dL Glucose (74-99) mg/dL POC Glucose (mg/dL) (70-110) mg/dL Plasma Lactic Acid Louie (0.7-2.0) mmol/L Calcium (8.4-10.2) mg/dL AST (14-36) U/L ALT (4-34) U/L Alkaline Phosphatase (38-126) U/L Troponin I 0.157 H* (0.000-0.034) ng/mL Total Protein (6.3-8.2) g/dL Albumin (3.5-5.0) g/dL Ur Specific [place] (1.001-1.035) Urine Protein (Negative) Urine Glucose (UA) (Negative) Urine Blood (Negative) Urine Nitrite (Negative) Urine RBC (0-5) /hpf Ur Squamous Epith Cells (0-4) /hpf Urine Bacteria (None) /hpf Hyaline Casts (0-2) /lpf Urine Mucus (None) /hpf Ur Amphetamines Screen (NotDetected) U Methamphetamines Scrn (NotDetected) U Benzodiazepines Scrn (NotDetected) Urine Cocaine Screen (NotDetected) Assessment and Plan Assessment: 44-year-old female with polysubstance abuse she was sent in here from [facility] after spending 1 day there due to altered mental status staff was suspecting drug abuse while there. Patient is known to use cocaine methamphetamine which her urine drug screen was positive for patient was awake oriented x 2 initially in the ED per their documentation at time of my evaluation she is sleeping difficult to arouse I discussed the case with ED doctor and accepted the admission for sepsis rule out underlying bacteremia or heart valve disease vegetation. UA positive patient unable to provide any history. With anticipated length of stay more than 2 midnights Sepsis unclear etiology rule out bacteremia rule out endocarditis due to IV drug use, possible UTI Urine analysis nitrite positive Follow-up blood cultures White count 15.5 with tachycardia no fever Empiric treatment with antibiotic vancomycin dosing by pharmacy Zosyn 3.375 g IV piggyback every 8 hours Tylenol for fever Neurochecks Fall precautions Bedside sitter for safety Check x-ray of the right hand Check echocardiogram to assess wall motion abnormalities and valvular veg etations Lactic acidosis initially 7 upon follow-up after hydration 2.6 Initial calcium elevated with hypercalcemia at 11 this could be secondary to dehydration Continue with natriuresis with IV fluid hydration with normal saline Follow-up with calcium level consider hypercalcemia workup if levels continue to to be elevated Elevated liver enzymes AST 105 ALT 164 Bilirubin unremarkable 0.5 Hold statin Continue to monitor liver enzymes Renal function overall unremarkable sodium 143 potassium 3.7 BUN 26 creatinine 0.69 Troponins elevated 0.087 then became 0.15 Await cardiology input This could be secondary to demand ischemia from dehydration and cocaine abuse Await further cardiology input Full code DVT prophylaxis heparin subcu 3 times daily 5000 units
[2023-10-18] MEDS: PIPERACILLIN-TAZOBACTAM 3.375 GM in SODIUM CHLORIDE 0.9% 100 ML IVPB SCH (07:35)
[2023-10-18] MEDS: HEPARIN SODIUM,PORCINE 5,000 UNIT/ML 1 ML VIAL SQ SCH (07:39)
[2023-10-18] MEDS: cloNIDine HCL 0.2 MG TAB PO PRN (07:47)
--- NOTE | 2023-10-18 07:49 | XR ---
EXAMINATION TYPE: XR hand limited RT DATE OF EXAM: 10/18/2023 CLINICAL HISTORY: pain TECHNIQUE: Frontal, lateral images of the right hand are obtained. COMPARISON: None. FINDINGS: There is no acute fracture/dislocation evident. The joint spaces appear within normal limi ts. The overlying soft tissue appears unremarkable. IMPRESSION: There is no acute fracture or dislocation ICD 10 NO FRACTURE, INITIAL EVALUATION
[2023-10-18] MEDS: ASPIRIN 81 MG PO STA (07:50)
[2023-10-18] MEDS ORDERED: DEXTROSE 50% SYRINGE 50 ML IVP PRN ×2 (08:18)
--- NOTE | 2023-10-18 08:25 | P.PN ---
Subjective Progress Note Date: 10/18/23 Patient is a 43-year-old female who came in from [facility] where she was for cocaine meth and opiate abuse, seizure disorder, and nicotine dependency who presented to the emergency department from [facility] due to altered mentation. In the ER she underwent an extensive evaluation. On arrival she was tachycardic with a pulse of 105 and a blood pressure of 212/162. Initial laboratory analysis was remarkable for white blood cell count 15.6, hemoglobin 18.4, platelets 474, pH 7.5, glucose 301, lactic acid 7, calcium 11, AST 105, ALT 164, alkaline phosphatase 179, troponin 0.087. Urinalysis did not show signs of urinary tract infection. Urine drug screen was positive for methamphetamines, benzodiazepines, and cocaine. Influenza A/B/RSV/COVID-19 testing was negative. Chest x-ray showed no acute process. CT head demonstrated no acute process or hemorrhage. CT thoracic aorta and CTA abdomen and pelvis normal lateral arteries of the abdomen and pelvis and normal aorta. EKG demonstrated sinus tachycardia with hyperacute T waves. In the ER she was given multiple doses of IV Ativan, 325 mg of aspirin, Zosyn, vancomycin, and 2 L of normal saline. Arrangements were made for admission. Patient was continued on Zosyn and Vanco as well as IV fluids. Patient seen and examined at bedside. She is sedated but awakes to voice. She is able to state the month, year, and her location correctly. However she declines to answer other questions, including her last use of cocaine (which he says was 2% ago) Vital signs reviewed General: Nontoxic, no distress, appears at stated age Cardiovascular: S1S2 reg, no murmur Lungs: CTA bilateral, no rhonchi, no rales, no accessory muscle use Abdominal: Soft, nontender to palpation, no guarding Ext: No gross muscle atrophy, no edema b/l lower extremities, no contractures Neuro: CN II-XI grossly intact, no focal neuro deficits Psych: Lethargic, oriented, appropriate affect Assessment/Plan: Sepsis unclear etiology rule out bacteremia rule out endocarditis due to IV drug use vs cocain intoxication (HR and WBC) Altered mentation, likely due to drug use Hyperglycemia Hypercalcemia - Vancomycin with pharmacy dosing D#1, monitor for toxicity with Cr and trough - Zozsyn 3.375 grams IVPB q 8 hours D#1 - Await blood cultures - echo - NS at 130 cc/hr - check A1c, sliding scale insulin based on blood sugars -Repeat basic metabolic profile, CBC in a.m. HTN Emergency Elevated troponin - elevated troponin due to HTN urgency, if continue to elevate will consider cardio consult - await echo - follow BP prn catapress at this time with goal mean BP 133 in the first 24 hours - Aviod selective BB for BP at this time. Transaminitis - undetermined etiology - check acute hepatits panel, liver uS - repeat in AM, may be due to sepsis or drug injestion Lactic acidosis, resolved Imaging: As listed above in HPI Data Review: As listed above in HPI and lactic acid now normalized at 1.6, troponin elevated at 0.221. Blood pressures continue to be elevated. DVT prophylaxis: Lovenox Anticipated discharge date: Pending clinical course Anticipated discharge place: Pending clinical course This dictation was prepared using [employer] voice recognition software. Though every attempt is made to correct errors during dictation some may still exist. Objective - Vital Signs Vital signs: Vital Signs Temp 97.2 F L 10/18/23 07:44 Pulse 90 10/18/23 07:44 Resp 18 10/18/23 07:44 BP 183/135 10/18/23 07:44 Pulse Ox 100 10/18/23 07:44 FiO2 Intake & Output 10/17/23 10/18/23 10/18/23 18:59 06:59 18:59 Weight 54.431 kg - Labs CBC & Chem 7: 10/17/23 23:00 10/17/23 23:00 Labs: Abnormal Lab Results - Last 24 Hours (Table) 10/17/23 10/17/23 10/17/23 Range/Units 23:00 23:00 23:00 WBC 15.6 H (3.8-10.6) k/uL RBC 5.62 H (3.80-5.40) m/uL Hgb 18.4 H (11.4-16.0) gm/dL Hct 53.0 H (34.0-46.0) % Plt Count 474 H (150-450) k/uL Neutrophils # 13.7 H (1.3-7.7) k/uL VBG pH (7.31-7.41) VBG pCO2 (37-51) mmHg BUN 26 H (7-17) mg/dL Glucose 301 H (74-99) mg/dL POC Glucose (mg/dL) (70-110) mg/dL Plasma Lactic Acid Louie (0.7-2.0) mmol/L Calcium 11.0 H (8.4-10.2) mg/dL AST 105 H (14-36) U/L ALT 164 H (4-34) U/L Alkaline Phosphatase 179 H (38-126) U/L Troponin I (0.000-0.034) ng/mL Total Protein 10.6 H (6.3-8.2) g/dL Albumin 5.4 H (3.5-5.0) g/dL Ur Specific [place] (1.001-1.035) Urine Protein (Negative) Urine Glucose (UA) (Negative) Urine Blood (Negative) Urine Nitrite (Negative) Urine RBC (0-5) /hpf Ur Squamous Epith Cells (0-4) /hpf Urine Bacteria (None) /hpf Hyaline Casts (0-2) /lpf Urine Mucus (None) /hpf Ur Amphetamines Screen Detected H (NotDetected) U Methamphetamines Scrn Detected H (NotDetected) U Benzodiazepines Scrn Detected H (NotDetected) Urine Cocaine Screen Detected H (NotDetected) 10/17/23 10/17/23 10/17/23 Range/Units 23:00 23:00 23:02 WBC (3.8-10.6) k/uL RBC (3.80-5.40) m/uL Hgb (11.4-16.0) gm/dL Hct (34.0-46.0) % Plt Count (150-450) k/uL Neutrophils # (1.3-7.7) k/uL VBG pH (7.31-7.41) VBG pCO2 (37-51) mmHg BUN (7-17) mg/dL Glucose (74-99) mg/dL POC Glucose (mg/dL) 273 H (70-110) mg/dL Plasma Lactic Acid Louie (0.7-2.0) mmol/L Calcium (8.4-10.2) mg/dL AST (14-36) U/L ALT (4-34) U/L Alkaline Phosphatase (38-126) U/L Troponin I 0.087 H* (0.000-0.034) ng/mL Total Protein (6.3-8.2) g/dL Albumin (3.5-5.0) g/dL Ur Specific [place] >1.050 H (1.001-1.035) Urine Protein 2+ H (Negative) Urine Glucose (UA) 2+ H (Negative) Urine Blood Moderate H (Negative) Urine Nitrite Positive H (Negative) Urine RBC 6 H (0-5) /hpf Ur Squamous Epith Cells 11 H (0-4) /hpf Urine Bacteria Occasional H (None) /hpf Hyaline Casts 3 H (0-2) /lpf Urine Mucus Rare H (None) /hpf Ur Amphetamines Screen (NotDetected) U Methamphetamines Scrn (NotDetected) U Benzodiazepines Scrn (NotDetected) Urine Cocaine Screen (NotDetected) 10/17/23 10/17/23 10/18/23 Range/Units 23:02 23:02 02:20 WBC (3.8-10.6) k/uL RBC (3.80-5.40) m/uL Hgb (11.4-16.0) gm/dL Hct (34.0-46.0) % Plt Count (150-450) k/uL Neutrophils # (1.3-7.7) k/uL VBG pH 7.50 H (7.31-7.41) VBG pCO2 31 L (37-51) mmHg BUN (7-17) mg/dL Glucose (74-99) mg/dL POC Glucose (mg/dL) (70-110) mg/dL Plasma Lactic Acid Louie 7.0 H* 2.6 H* (0.7-2.0) mmol/L Calcium (8.4-10.2) mg/dL AST (14-36) U/L ALT (4-34) U/L Alkaline Phosphatase (38-126) U/L Troponin I (0.000-0.034) ng/mL Total Protein (6.3-8.2) g/dL Albumin (3.5-5.0) g/dL Ur Specific [place] (1.001-1.035) Urine Protein (Negative) Urine Glucose (UA) (Negative) Urine Blood (Negative) Urine Nitrite (Negative) Urine RBC (0-5) /hpf Ur Squamous Epith Cells (0-4) /hpf Urine Bacteria (None) /hpf Hyaline Casts (0-2) /lpf Urine Mucus (None) /hpf Ur Amphetamines Screen (NotDetected) U Methamphetamines Scrn (NotDetected) U Benzodiazepines Scrn (NotDetected) Urine Cocaine Screen (NotDetected) 10/18/23 10/18/23 Range/Units 03:53 06:40 WBC (3.8-10.6) k/uL RBC (3.80-5.40) m/uL Hgb (11.4-16.0) gm/dL Hct (34.0-46.0) % Plt Count (150-450) k/uL Neutrophils # (1.3-7.7) k/uL VBG pH (7.31-7.41) VBG pCO2 (37-51) mmHg BUN (7-17) mg/dL Glucose (74-99) mg/dL POC Glucose (mg/dL) (70-110) mg/dL Plasma Lactic Acid Louie (0.7-2.0) mmol/L Calcium (8.4-10.2) mg/dL AST (14-36) U/L ALT (4-34) U/L Alkaline Phosphatase (38-126) U/L Troponin I 0.157 H* 0.221 H* (0.000-0.034) ng/mL Total Protein (6.3-8.2) g/dL Albumin (3.5-5.0) g/dL Ur Specific [place] (1.001-1.035) Urine Protein (Negative) Urine Glucose (UA) (Negative) Urine Blood (Negative) Urine Nitrite (Negative) Urine RBC (0-5) /hpf Ur Squamous Epith Cells (0-4) /hpf Urine Bacteria (None) /hpf Hyaline Casts (0-2) /lpf Urine Mucus (None) /hpf Ur Amphetamines Screen (NotDetected) U Methamphetamines Scrn (NotDetected) U Benzodiazepines Scrn (NotDetected) Urine Cocaine Screen (NotDetected)
[2023-10-18] MEDS: hydrALAZINE HCL 20 MG/ML 1 ML VIAL IVP SCH (09:33)
[2023-10-18] MEDS: SODIUM CHLORIDE 0.9% 1,000 ML IV SCH (10:06)
[2023-10-18 10:55] LABS: Glucose,Whole Blood 136 mg/dL (70-110)
--- NOTE | 2023-10-18 11:32 | P.CRDCN ---
History of Present Illness History of present illness: HISTORY OF PRESENT ILLNESS: This is a 43-year-old female with a past medical history significant for seizure disorder and polysubstance abuse. Patient does not follow with a range scientist. We have been asked to see the patient in consultation for elevated troponins. Patient examined at the bedside in the emergency room. Patient is lethargic and unable to provide any history at the time of examination. Patient is apparently at [facility] [place] for polysubstance abuse. She was brought to the hospital for altered mental status and concerns of continued drug use. Toxicology screen on admission positive for methamphetamines, amphetamines, benzodiazepines, and cocaine DIAGNOSTICS: - EKG reveals sinus mechanism with no signs of acute ischemia - Chest xray negative for acute process - Laboratory data: WBC 15.6. Hemoglobin 18.4. Platelet count 474. Sodium 143. Potassium 3.7. BUN 26. Creatinine 0.69. Lactic acid 7. Repeat 1.6. AST 105. ALT 164. Troponin 0.087. 0.157. 0.2-1. - Current home cardiac medications include none. - No previous echocardiogram, stress test, or cardiac catheterization available in EMR for review REVIEW OF SYSTEMS: At the time of my exam: CONSTITUTIONAL: Denies fever or chills. HEENT: Denies blurred vision, vision changes, or eye pain. Denies hemoptysis CARDIOVASCULAR: Denies chest pain. Denies orthopnea. Denies PND. Denies palpitations RESPIRATORY: Denies shortness of breath. GASTROINTESTINAL: Denies abdominal pain. Denies nausea or vomiting. HEMATOLOGIC: Denies bleeding disorders. GENITOURINARY: Denies any blood in urine. SKIN: Denies pruitis. Denies rash. PHYSICAL EXAM: VITAL SIGNS: Reviewed. GENERAL: Well-developed in no acute distress. HEENT: Head is normocephalic. Pupils are equal, round. Sclerae anicteric. Mucous membranes of the mouth are moist. Neck supple. No JVD or thyromegaly LUNGS: Respirations even and unlabored. Lungs essentially clear to auscultation bilaterally. HEART: Regular rate and rhythm. S1 and S2 heard. ABDOMEN: Soft. Nondistended. Nontender. EXTREMITIES: Normal range of motion. No clubbing or cyanosis. Peripheral pulses intact. No lower extremity edema NEUROLOGIC: Awake and alert. Oriented x 3. ASSESSMENT: Altered mental status Polysubstance abuse Abnormal troponins, type I MS unlikely, likely secondary to HTN emergency and polysubstance abuse Sepsis, etiology unclear Abnormal UA Hypertensive emergency Lactic acidosis Elevated liver enzymes PLAN: Obtain 2D echo to assess cardiac structure and function Discontinue PRN Catapres Begin hydralazine 20 mg IV push every 8 hours. When patient's mentation improves, will transition to oral antihypertensive Continue to monitor blood pressure Further recommendations pending patient course Nurse practitioner note has been reviewed by physician. Signing provider agrees with the documented findings, assessment, and plan of care documented by [employer] PAINTER HELPER as a scribe. Past Medical History Past Medical History: No Reported History, Seizure Disorder Additional Past Medical History / Comment(s): bilateral torn rotator cuffs surgery 2009, bilateral carpal tunnel. MRSA infection Right 5th toe. Open wound right 5th toe History of Any Multi-Drug Resistant Organisms: MRSA Date of last positivie culture/infection: 07/10/2015 MDRO Source:: Right foot fifth digit Past Surgical History: Appendectomy, Section, Cholecystectomy, Orthopedic Surgery Additional Past Surgical History / Comment(s): EPILYPSY, BILATERAL TORN ROTATOR CUFFS Past Anesthesia/Blood Transfusion Reactions: No Reported Reaction Past Psychological History: No Psychological Hx Reported Smoking Status: Vaper Past Alcohol Use History: Rare Past Drug Use History: None Reported - Past Family History Father Family Medical History: CVA/TIA Additional Family Medical History / Comment(s): 2011 Mother Family Medical History: No Reported History Additional Family Medical History / Comment(s): arthritis Medications and Allergies Home Medications Medication Instructions Recorded Confirmed Type Acetaminophen Tab [Tylenol] 650 mg PO Q4H PRN MDD 4 doses 10/18/23 10/18/23 History Calcium/Mag/Zinc/Vit D3 1 tab PO TID PRN 10/18/23 10/18/23 History Chlorpheniramine Maleate 4 mg PO Q4H PRN 10/18/23 10/18/23 History [Chlor-Trimeton] Ibuprofen [Motrin] 600 mg PO Q6H PRN 10/18/23 10/18/23 History Loperamide HCl [Imodium A-D] 4 mg PO QID PRN MDD 8 TABS 10/18/23 10/18/23 History Mylanta 30 ml PO Q4H PRN 10/18/23 10/18/23 History Tigan 200mg/2ml 200 mg IM Q6H PRN 10/18/23 10/18/23 History Zofran 4mg/2ml 4 mg IM Q6H PRN 10/18/23 10/18/23 History buprenorphine HCL [Subutex] 2 - 4 mg SUBLINGUAL DIRECTED 10/18/23 10/18/23 History cloNIDine HCL [Catapres] 0.1 mg PO Q4H PRN 10/18/23 10/18/23 History ondansetron HCL [Zofran] 8 mg PO Q6HR PRN 10/18/23 10/18/23 History Allergies Allergy/AdvReac Type Severity Reaction Status Date / Time lidocaine Allergy Anaphylaxis Verified 10/18/23 08:13 codeine AdvReac Nausea & Verified 10/18/23 08:13 Vomiting Physical Exam Vitals: Vital Signs Temp Pulse Resp BP Pulse Ox 10/18/23 07:44 97.2 F L 90 18 183/135 100 10/18/23 06:00 92 20 166/91 99 10/18/23 03:45 101 H 22 110/73 99 10/18/23 00:47 99 20 163/72 99 10/17/23 23:14 93 22 203/143 100 10/17/23 22:40 99.1 F 105 H 20 212/162 100 Intake and Output 10/17/23 10/18/23 10/18/23 22:59 06:59 14:59 Other: Weight 54.431 kg Results 10/17/23 23:00 10/17/23 23:00 Cardiac Enzymes 10/17/23 10/17/23 10/18/23 Range/Units 23:00 23:00 03:53 AST 105 H (14-36) U/L Troponin I 0.087 H* 0.157 H* (0.000-0.034) ng/mL 10/18/23 Range/Units 06:40 AST (14-36) U/L Troponin I 0.221 H* (0.000-0.034) ng/mL Coagulation 10/17/23 Range/Units 23:00 PT 12.3 (10.0-12.5) sec APTT 24.6 (22.0-30.0) sec CBC 10/17/23 Range/Units 23:00 WBC 15.6 H (3.8-10.6) k/uL RBC 5.62 H (3.80-5.40) m/uL Hgb 18.4 H (11.4-16.0) gm/dL Hct 53.0 H (34.0-46.0) % Plt Count 474 H (150-450) k/uL Comprehensive Metabolic Panel 10/17/23 Range/Units 23:00 Sodium 143 (137-145) mmol/L Potassium 3.7 (3.5-5.1) mmol/L Chloride 98 (98-107) mmol/L Carbon Dioxide 23 (22-30) mmol/L BUN 26 H (7-17) mg/dL Creatinine 0.69 (0.52-1.04) mg/dL Glucose 301 H (74-99) mg/dL Calcium 11.0 H (8.4-10.2) mg/dL AST 105 H (14-36) U/L ALT 164 H (4-34) U/L Alkaline Phosphatase 179 H (38-126) U/L Total Protein 10.6 H (6.3-8.2) g/dL Albumin 5.4 H (3.5-5.0) g/dL Current Medications Generic Name Dose Route Start Last Admin Trade Name Freq PRN Reason Stop Dose Admin Clonidine 0.2 mg 10/18/23 05:35 Clonidine Hcl 0.2 Mg Tab PO TID PRN Blood Pressure - High Heparin Sodium (Porcine) 5,000 unit 10/18/23 08:00 10/18/23 07:39 Heparin Sodium,Porcine 5,000 Unit/Ml 1 Ml Vial SQ 5,000 unit Q8HR GRETTA Administration Piperacillin Sod/Tazobactam 100 mls @ 25 mls/hr 10/18/23 08:00 10/18/23 07:35 Sod 3.375 gm/ Sodium Chloride IVPB 25 mls/hr Q8HR GRETTA Administration Protocol Vancomycin HCl 1,000 mg/ 250 mls @ 125 mls/hr 10/18/23 13:00 Sodium Chloride IVPB Q12H GRETTA Sodium Chloride 1,000 mls @ 130 mls/hr 10/18/23 00:18 10/18/23 01:11 Saline 0.9% IV 10/18/23 07:59 130 mls/hr .Q7H42M STA Administration Lorazepam 1 mg 10/18/23 02:32 Lorazepam 2 Mg/Ml Inj IV Q4HR PRN Agitation Naloxone HCl 0.2 mg 10/18/23 02:58 Naloxone 0.4 Mg/Ml 1 Ml Vial IV Q2M PRN Opioid Reversal Ondansetron HCl 4 mg 10/18/23 02:58 Ondansetron 4 Mg/2 Ml Vial IVP Q8HR PRN Nausea And Vomiting Intake and Output 10/17/23 10/18/23 10/18/23 22:59 06:59 14:59 Other: Weight 54.431 kg 10/17/23 23:00 10/17/23 23:00
[2023-10-18] MEDS: INSULIN ASPART (NovoLOG) 100 UNIT/ML VIAL SQ SCH (11:56)
[2023-10-18] MEDS: VANCOMYCIN 1,000 MG in SODIUM CHLORIDE 0.9% 250 ML IVPB SCH (14:22)
[2023-10-18] MEDS: ONDANSETRON 4 MG/2 ML VIAL IVP PRN (15:12)
--- NOTE | 2023-10-18 15:36 | P.CNNES ---
History of Present Illness Consult date: 10/18/23 Requesting physician: Migel Walker Reason for Consult: AMS History of Present Illness: Patient is a 43-year-old female, who states that she has longstanding history of substance abuse, was brought to the hospital by ambulance yesterday at 10:39 PM for altered mental status. Patient states that she has history of history of heroin and cocaine use "for a long time", which she states either snorts or shoots IV. She states that she does 1 or the other and the last time she did IV was 2 days prior. Patient states that she also snorts cocaine. The last time she did drugs was on Monday, which is 2 days ago. She then went to rehab. While she was in the rehab, she was not coherent, therefore they called the am bulance and she was brought to the hospital. Patient has been having nausea vomiting while in the ER. As per EMS flowsheet when they arrived, patient was seated in a chair in the nursing station alert and oriented x 2. Her arms are discolored with bruising and scar tissue. Stroke scale negative. It was reported she had a sudden onset of decrease in mentation/urinary incontinence/nausea/vomiting at 9:30 PM. She was given 2 mg Subutex, 0.2 mg Catapres, 4 mg Zofran. Blood sugar was 205 mg/dL . Temperature 96.8 tympanic. She was ambulatory without assistance and with a steady gait where she sat. Patient denies any difficulty breathing, vertigo. EKG shows sinus rhythm. Patient's blood pressure was 156/111, pulse rate 100 respirations 16 saturation 100%. Patient's blood pressure remained elevated with the last one documented 185/111. Vital signs in the ER was blood pressure 212/162, pulse rate 105 temperature 99.1. Her blood pressure is now well-controlled, with blood pressure 145/83. Blood test shows WBC 15.6, hemoglobin 18.4, platelets 474. PT PTT normal. Electrolytes are normal, renal functions are normal. AST is 105, ALT 164. Lactate 7.0. Troponin was mildly elevated 0.087. UA shows positive nitrite, with negative leukocyte esterase. Urine drug screen positive for amphetamines, methamphetamine, benzodiazepine, cocaine. Blood alcohol level negative, acetone negative. Influenza screen, RSV and coronavirus PCR negative. CT head revealed no acute process. I personally reviewed CT head agree with the findings. CT chest abdomen pelvis are normal. EKG shows sinus rhythm with possible left atrial enlargement. Hand x-ray showed no evidence of acute fracture or dislocation. Denies any tobacco use or any alcoholism. She lives alone, has no children. Review of Systems Constitutional: Denies chills, Denies fever Eyes: denies blurred vision, denies diplopia, denies pain, denies loss of p eripheral vision Ears: deny: decreased hearing, ear discharge Ears, nose, mouth and throat: Denies headache, Denies sore throat, Denies vertigo Cardiovascular: Denies chest pain, Denies shortness of breath Respiratory: Reports cough, Reports excessive sputum, Denies wheezing Gastrointestinal: Reports nausea, Reports vomiting, Denies abdominal pain, Denies diarrhea Genitourinary: Denies dysuria, Denies hematuria, Denies urge incontinence Musculoskeletal: Denies low back pain, Denies neck pain Integumentary: Denies pruritus, Denies rash Neurological: Reports as per HPI Psychiatric: Denies anxiety, Denies depression Endocrine: Denies fatigue, Denies weight change Past Medical History Past Medical History: No Reported History, Seizure Disorder Additional Past Medical History / Comment(s): bilateral torn rotator cuffs surgery 2009, bilateral carpal tunnel. MRSA infection Right 5th toe. Open wound right 5th toe History of Any Multi-Drug Resistant Organisms: MRSA Date of last positivie culture/infection: 07/10/2015 MDRO Source:: Right foot fifth digit Past Surgical History: Appendectomy, Section, Cholecystectomy, Orthopedic Surgery Additional Past Surgical History / Comment(s): EPILYPSY, BILATERAL TORN ROTATOR CUFFS Past Anesthesia/Blood Transfusion Reactions: No Reported Reaction Past Psychological History: No Psychological Hx Reported Smoking Status: Vaper Past Alcohol Use History: Rare Past Drug Use History: None Reported - Past Family History Father Family Medical History: CVA/TIA Additional Family Medical History / Comment(s): 2011 Mother Family Medical History: No Reported History Additional Family Medical History / Comment(s): arthritis Medications and Allergies Home Medications Medication Instructions Recorded Confirmed Type Acetaminophen Tab [Tylenol] 650 mg PO Q4H PRN MDD 4 doses 10/18/23 10/18/23 History Calcium/Mag/Zinc/Vit D3 1 tab PO TID PRN 10/18/23 10/18/23 History Chlorpheniramine Maleate 4 mg PO Q4H PRN 10/18/23 10/18/23 History [Chlor-Trimeton] Ibuprofen [Motrin] 600 mg PO Q6H PRN 10/18/23 10/18/23 History Loperamide HCl [Imodium A-D] 4 mg PO QID PRN MDD 8 TABS 10/18/23 10/18/23 History Mylanta 30 ml PO Q4H PRN 10/18/23 10/18/23 History Tigan 200mg/2ml 200 mg IM Q6H PRN 10/18/23 10/18/23 History Zofran 4mg/2ml 4 mg IM Q6H PRN 10/18/23 10/18/23 History buprenorphine HCL [Subutex] 2 - 4 mg SUBLINGUAL DIRECTED 10/18/23 10/18/23 History cloNIDine HCL [Catapres] 0.1 mg PO Q4H PRN 10/18/23 10/18/23 History ondansetron HCL [Zofran] 8 mg PO Q6HR PRN 10/18/23 10/18/23 History Allergies Allergy/AdvReac Type Severity Reaction Status Date / Time lidocaine Allergy Anaphylaxis Verified 10/18/23 08:13 codeine AdvReac Nausea & Verified 10/18/23 08:13 Vomiting Physical Examination - Vital Signs Vital Signs: Vital Signs Temp Pulse Resp BP Pulse Ox 10/18/23 14:28 98.3 F 82 16 157/89 100 10/18/23 13:36 89 20 158/86 96 10/18/23 11:36 99.1 F 10/18/23 11:00 94 18 145/83 97 10/18/23 09:30 178/123 10/18/23 07:44 97.2 F L 90 18 183/135 100 10/18/23 06:00 92 20 166/91 99 10/18/23 03:45 101 H 22 110/73 99 10/18/23 00:47 99 20 163/72 99 10/17/23 23:14 93 22 203/143 100 10/17/23 22:40 99.1 F 105 H 20 212/162 100 Intake and Output 10/17/23 10/18/23 10/18/23 22:59 06:59 14:59 Other: Weight 54.431 kg Patient is a middle aged female, who is laying in the bed, in no dist ress. Patient is somnolent, somewhat encephalopathic, but does become quite alert and awake on questioning, and was oriented to time place and person. She knows it is October 2023 and that she is in [facility] in [facility]. She could not recall name of the president but said yes for [place]. Speech and language functions are normal. Patient can name and repeat very well. No aph eugenio or dysarthria. Attention, concentration and fund of knowledge is adequate. Patient's once became alert, was very mentally sharp and clear. However she keeps her eyes closed. On cranial nerve examination, pupils are equal, round and reacting to light, visual valenzuela are full on confrontation, with no neglect on double simultaneous stimulation. Extraocular muscles are intact with no nystagmus. Face is symmetric, tongue protrudes to the midline. Palatal elevation and sensation normal, hearing and shoulder shrug normal, facial sensation normal. On muscle strength testing, there is no pronator drift and the strength is normal in arms and legs distally and proximally. Deep tendon reflexes are symmetric, but very hypoactive to absent, and plantars are flat. Sensory to touch is equal with no neglect on double simultaneous stimulation. Cerebellar function showed no ataxia for [id number] testing. No dysdiadochokinesia. No ataxia for [id number] testing on either side. Tone and bulk of muscles normal. Gait deferred.. On general examination, there is no carotid bruit or murmur, S1-S2 audible. Chest is clear on consultation. Abdomen is soft nontender. No organomegaly, bowel sounds present. Peripheral pulses are present. No peripheral edema. Patient has evidence of track urban in her forearms. Results - Laboratory Findings CBC and BMP: 10/19/23 08:01 10/19/23 08:01 Abnormal Lab Findings: Abnormal Labs 10/17/23 10/17/23 10/17/23 23:00 23:00 23:00 WBC 15.6 H RBC 5.62 H Hgb 18.4 H Hct 53.0 H Plt Count 474 H Neutrophils # 13.7 H VBG pH VBG pCO2 BUN 26 H Glucose 301 H POC Glucose (mg/dL) Plasma Lactic Acid Louie Calcium 11.0 H AST 105 H ALT 164 H Alkaline Phosphatase 179 H Troponin I Total Protein 10.6 H Albumin 5.4 H Ur Specific [place] Urine Protein Urine Glucose (UA) Urine Blood Urine Nitrite Urine RBC Ur Squamous Epith Cells Urine Bacteria Hyaline Casts Urine Mucus Ur Amphetamines Screen Detected H U Methamphetamines Scrn Detected H U Benzodiazepines Scrn Detected H Urine Cocaine Screen Detected H 10/17/23 10/17/23 10/17/23 23:00 23:00 23:02 WBC RBC Hgb Hct Plt Count Neutrophils # VBG pH VBG pCO2 BUN Glucose POC Glucose (mg/dL) 273 H Plasma Lactic Acid Louie Calcium AST ALT Alkaline Phosphatase Troponin I 0.087 H* Total Protein Albumin Ur Specific [place] >1.050 H Urine Protein 2+ H Urine Glucose (UA) 2+ H Urine Blood Moderate H Urine Nitrite Positive H Urine RBC 6 H Ur Squamous Epith Cells 11 H Urine Bacteria Occasional H Hyaline Casts 3 H Urine Mucus Rare H Ur Amphetamines Screen U Methamphetamines Scrn U Benzodiazepines Scrn Urine Cocaine Screen 10/17/23 10/17/23 10/18/23 23:02 23:02 02:20 WBC RBC Hgb Hct Plt Count Neutrophils # VBG pH 7.50 H VBG pCO2 31 L BUN Glucose POC Glucose (mg/dL) Plasma Lactic Acid Louie 7.0 H* 2.6 H* Calcium AST ALT Alkaline Phosphatase Troponin I Total Protein Albumin Ur Specific [place] Urine Protein Urine Glucose (UA) Urine Blood Urine Nitrite Urine RBC Ur Squamous Epith Cells Urine Bacteria Hyaline Casts Urine Mucus Ur Amphetamines Screen U Methamphetamines Scrn U Benzodiazepines Scrn Urine Cocaine Screen 10/18/23 10/18/23 10/18/23 03:53 06:40 10:28 WBC RBC Hgb Hct Plt Count Neutrophils # VBG pH VBG pCO2 BUN Glucose POC Glucose (mg/dL) Plasma Lactic Acid Louie Calcium AST ALT Alkaline Phosphatase Troponin I 0.157 H* 0.221 H* 0.204 H* Total Protein Albumin Ur Specific [place] Urine Protein Urine Glucose (UA) Urine Blood Urine Nitrite Urine RBC Ur Squamous Epith Cells Urine Bacteria Hyaline Casts Urine Mucus Ur Amphetamines Screen U Methamphetamines Scrn U Benzodiazepines Scrn Urine Cocaine Screen 10/18/23 10:53 WBC RBC Hgb Hct Plt Count Neutrophils # VBG pH VBG pCO2 BUN Glucose POC Glucose (mg/dL) 136 H Plasma Lactic Acid Louie Calcium AST ALT Alkaline Phosphatase Troponin I Total Protein Albumin Ur Specific [place] Urine Protein Urine Glucose (UA) Urine Blood Urine Nitrite Urine RBC Ur Squamous Epith Cells Urine Bacteria Hyaline Casts Urine Mucus Ur Amphetamines Screen U Methamphetamines Scrn U Benzodiazepines Scrn Urine Cocaine Screen Assessment and Plan Assessment: * Patient presented with sudden onset of decrease in mentation and urinary incontinence/nausea vomiting, while she was in rehab facility for polysubstance abuse. When EMS arrived, patient was in postictal state. Rule out seizure triggered from polysubstance abuse. * Reported history of seizure disorder in the electronic chart, but patient denies. * Altered mental status, likely due to toxic metabolic encephalopathy from polysubstance abuse. Patient may have hypertensive encephalopathy. Rule out postictal state. * Patient admits to snorting or shooting heroin, and snorting cocaine, off and on for "long time". However her urine is also positive for amphetamines and methamphetamines as well, besides being positive for cocaine and benzodiazepine. Patient does not know how she became positive on the amphetamines. Perhaps the drugs were laced with some other substance as well. * Nausea vomiting, likely due to polysubstance abuse * Lactic acidosis, rule out sepsis * Elevated LFTs * Mildly elevated troponins * ? UTI, with positive nitrite, negative leukocyte esterase Plan: * Symptomatic care. * Hydration * Control blood pressure * Watch for withdrawals from substance abuse. * Cardiology on board for elevated cardiac enzymes. * 2D echo revealed normal left ventricular size and systolic function with EF 55 to 60%. No obvious regional wall motion abnormalities. Normal left atrial size. No valvular abnormalities noted. * Neurological examination is completely nonfocal, except for mild encephalopathy, which is likely related to substance abuse/withdrawal versus postictal state. * Patient's mentation is improving. Her current examination is nonfocal. * Patient's chart reports history of seizure disorder although patient declines any history of seizure. We will check EEG evaluate for epileptiform activity. We will obtain detailed history of seizures when her mentation is further improved. * Neurology will follow clinically. Thank you for the consult.
--- NOTE | 2023-10-18 17:38 | CA ---
Transthoracic Echo Report Name: Mauricio Pretty Age: 43 Gender: F : 1980 Exam Date: 10/18/2023 11:53 Exam Location: [facility] Ht (in): 63 Wt (lb): 120 Ordering Physician: Otilio Haro MD Attending/Referring Phys: [id number], Tahir Case Reviewer Danielle Bravo RDCS Procedure CPT: Indications: valvular vegetation, wall motion Cardiac Hx: Technical Quality: Contrast 1: Total Dose (mL): Contrast 2: Total Dose (mL): MEASUREMENTS (Male / Female) Normal Values 2D ECHO LV Diastolic Diameter PLAX 4.2 cm 4.2 - 5.9 / 3.9 - 5.3 cm LV Systolic Diameter PLAX 2.7 cm IVS Diastolic Thickness 0.7 cm 0.6 - 1.0 / 0.6 - 0.9 cm LVPW Diastolic Thickness 0.7 cm 0.6 - 1.0 / 0.6 - 0.9 cm LV Relative Wall Thickness 0.3 LA Systolic Diameter LX 3.9 cm 3.0 - 4.0 / 2.7 - 3.8 cm DOPPLER AV Peak Velocity 165.5 cm/s AV Peak Gradient 11.0 mmHg AV Mean Velocity 114.5 cm/s AV Mean Gradient 5.9 mmHg AV Velocity Time Integral 25.9 cm LVOT Peak Velocity 126.1 cm/s LVOT Peak Gradient 6.4 mmHg LVOT Velocity Time Integral 22.0 cm Mitral E Point Velocity 78.3 cm/s Mitral A Point Velocity 86.9 cm/s Mitral E to A Ratio 0.9 MV Deceleration Time 146.8 ms MV E' Velocity 7.1 cm/s Mitral E to MV E' Ratio 11.1 FINDINGS Left Ventricle Left ventricular ejection fraction is estimated at 55-60 %. No obvious regional wall motion abnormalities. Left ventricular cavity size normal. Right Ventricle Normal right ventricular size. Right Atrium Normal right atrial size. Left Atrium Normal left atrial size. Mitral Valve No mitral regurgitation. Aortic Valve Trileaflet aortic valve. Tricuspid Valve No tricuspid regurgitation. Pulmonic Valve No pulmonic regurgitation. Pericardium No pericardial effusion. Aorta Aortic root and proximal ascending aorta not well visualized. CONCLUSIONS Normal LV function Previewed by: Dr. Dominic Beckman MD (Electronically Signed) Final Date: 18 October 2023 17:38
[2023-10-18 17:56] LABS: Glucose,Whole Blood 127 mg/dL (70-110)
[2023-10-18 18:13] LABS: Hepatitis C IgG Antibody Reactive (Non-Reactive)
[2023-10-18 18:42] LABS: Hepatitis A Antibody IgM Nonreactive; Hepatitis B Core IgM Nonreactive; Hepatitis B Surface Antigen Nonreactive
[2023-10-18 20:46] LABS: Glucose,Whole Blood 122 mg/dL (70-110)
[2023-10-19 05:47] LABS: Glucose,Whole Blood 103 mg/dL (70-110)
[2023-10-19 09:54] LABS: HCT 40.8 % (34.0-46.0); MCH 32.8 pg (25.0-35.0); MCHC 34.8 g/dL (31.0-37.0); MCV 94.1 fL (80.0-100.0); Mean Platelet Volume 8.7; Platelet Count 316 k/uL (150-450); RBC 4.33 m/uL (3.80-5.40); RDW 12.8 % (11.5-15.5); WBC 13.6 k/uL (3.8-10.6)
[2023-10-19 10:02] LABS: HGB 14.2 gm/dL (11.4-16.0)
[2023-10-19] MEDS: amLODIPine 5 MG TAB PO SCH (10:10)
[2023-10-19 10:23] LABS: ALT 80 U/L (4-34); AST 62 U/L (14-36); African American GFR (CKD) >90 (>60 ml/min/1.73 sqM); Albumin 3.8 g/dL (3.5-5.0); Alkaline Phosphatase 111 U/L (38-126); Anion Gap 8 mmol/L; Blood Urea Nitrogen 11 mg/dL (7-17); Calcium 8.8 mg/dL (8.4-10.2); Carbon Dioxide 21 mmol/L (22-30); Chloride 107 mmol/L (98-107); Glucose 97 mg/dL (74-99); Magnesium 1.5 mg/dL (1.6-2.3); Non-African American GFR(CKD) >90 (>60 ml/min/1.73 sqM); Sodium 136 mmol/L (137-145); Total Bilirubin 0.6 mg/dL (0.2-1.3); Total Protein 7.4 g/dL (6.3-8.2)
[2023-10-19] MEDS ORDERED: MELATONIN 5 MG TABLET PO PRN (10:26)
[2023-10-19] MEDS ORDERED: bisacodyL 5 MG TABLET.DR PO PRN (10:26)
[2023-10-19] MEDS ORDERED: ALBUTEROL NEBULIZED 2.5 MG/3 ML INHALATION PRN (10:26)
[2023-10-19] MEDS ORDERED: ACETAMINOPHEN TAB 325 MG TAB PO PRN (10:26)
[2023-10-19] MEDS: POTASSIUM CHLORIDE ER 20 MEQ TAB.ER PO STA (10:55)
[2023-10-19] MEDS: MAGNESIUM SULFATE-D5W PMX 1 GM in DEXTROSE/WATER 1 100ML.BAG IVPB SCH (10:55)
[2023-10-19 11:18] LABS: Glucose,Whole Blood 146 mg/dL (70-110)
[2023-10-19] MEDS: VANCOMYCIN 1,000 MG in SODIUM CHLORIDE 0.9% 250 ML IVPB SCH (11:58)
--- NOTE | 2023-10-19 12:03 | P.PN ---
Subjective HISTORY OF PRESENT ILLNESS: This is a 43-year-old female with a past medical history significant for seizure disorder and polysubstance abuse. Patient does not follow with a agricultural researcher. We have been asked to see the patient in consultation for elevated troponins. Patient examined at the bedside in the emergency room. Patient is lethargic and unable to provide any history at the time of examination. Patient is apparently at [place] for polysubstance abuse. She was brought to the hospital for altered mental status and concerns of continued drug use. Toxicology screen on admission positive for methamphetamines, amphetamines, benzodiazepines, and cocaine DIAGNOSTICS: - EKG reveals sinus mechanism with no signs of acute ischemia - Chest xray negative for acute process - Laboratory data: WBC 15.6. Hemoglobin 18.4. Platelet count 474. Sodium 143. Potassium 3.7. BUN 26. Creatinine 0.69. Lactic acid 7. Repeat 1.6. AST 1 05. ALT 164. Troponin 0.087. 0.157. 0.2-1. - Current home cardiac medications include none. - No previous echocardiogram, stress test, or cardiac catheterization available in EMR for review 10/19/2023 Patient examined this morning at the bedside. Patient is uncooperative with examination this morning. She denies any chest pain or pressure. Denies any shortness of breath. Blood cultures are preliminary positive for gram-positive cocci in clusters. White count today 13.6. Echocardiogram completed revealing ejection fraction 55 to 60% with no obvious evidence of vegetation. PHYSICAL EXAM: VITAL SIGNS: Reviewed. GENERAL: Well-developed in no acute distress. HEENT: Head is normocephalic. Pupils are equal, round. Sclerae anicteric. Mucous membranes of the mouth are moist. Neck supple. No JVD or thyromegaly LUNGS: Respirations even and unlabored. Lungs essentially clear to auscultation bilaterally. HEART: Regular rate and rhythm. S1 and S2 heard. ABDOMEN: Soft. Nondistended. Nontender. EXTREMITIES: Normal range of motion. No clubbing or cyanosis. Peripheral pulses intact. No lower extremity edema NEUROLOGIC: Awake and alert. ASSESSMENT: Altered mental status Polysubstance abuse Abnormal troponins, type I IA unlikely, likely secondary to HTN emergency and polysubstance abuse Sepsis, etiology unclear Bacteremia, blood cultures positive for gram-positive cocci in clusters Abnormal UA Hypertensive emergency Lactic acidosis Elevated liver enzymes PLAN: Discontinue IV hydralazine Add amlodipine 5 mg daily. Will increase if needed pending trend of blood pressures. Await finalization of blood cultures. Patient may require KJ. However, patient is not cooperative enough at this time for KJ. Further recommendations pending patient course Nurse practitioner note has been reviewed by physician. Signing provider agrees with the documented findings, assessment, and plan of care documented by SALES PLANNING ANALYST as a scribe. Objective - Vital Signs Vital signs: Vital Signs Temp 98.2 F 10/19/23 08:15 Pulse 99 10/19/23 08:15 Resp 16 10/19/23 08:15 BP 161/84 10/19/23 08:15 Pulse Ox 97 10/19/23 08:15 FiO2 Intake & Output 10/18/23 10/19/23 10/19/23 18:59 06:59 18:59 Intake Total 110 Balance 110 Weight 54.431 kg Intake: Oral 110 Other: Voiding Method Bedside Commode Bedside Commode # Voids 1 # Bowel Movements 1 - Labs CBC & Chem 7: 10/19/23 08:01 10/19/23 08:01 Labs: Abnormal Lab Results - Last 24 Hours (Table) 10/18/23 10/18/23 10/18/23 Range/Units 10:28 15:08 17:55 WBC (3.8-10.6) k/uL Sodium (137-145) mmol/L Potassium (3.5-5.1) mmol/L Carbon Dioxide (22-30) mmol/L Creatinine (0.52-1.04) mg/dL POC Glucose (mg/dL) 127 H (70-110) mg/dL Magnesium (1.6-2.3) mg/dL AST (14-36) U/L ALT (4-34) U/L Troponin I 0.154 H* (0.000-0.034) ng/mL Hep C IgG Ab Reactive A (Non-Reactive) 10/18/23 10/19/23 10/19/23 Range/Units 20:44 08:01 08:01 WBC 13.6 H (3.8-10.6) k/uL Sodium 136 L (137-145) mmol/L Potassium 3.0 L (3.5-5.1) mmol/L Carbon Dioxide 21 L (22-30) mmol/L Creatinine 0.45 L (0.52-1.04) mg/dL POC Glucose (mg/dL) 122 H (70-110) mg/dL Magnesium 1.5 L (1.6-2.3) mg/dL AST 62 H (14-36) U/L ALT 80 H (4-34) U/L Troponin I (0.000-0.034) ng/mL Hep C IgG Ab (Non-Reactive) 10/19/23 Range/Units 11:16 WBC (3.8-10.6) k/uL Sodium (137-145) mmol/L Potassium (3.5-5.1) mmol/L Carbon Dioxide (22-30) mmol/L Creatinine (0.52-1.04) mg/dL POC Glucose (mg/dL) 146 H (70-110) mg/dL Magnesium (1.6-2.3) mg/dL AST (14-36) U/L ALT (4-34) U/L Troponin I (0.000-0.034) ng/mL Hep C IgG Ab (Non-Reactive) Microbiology - Last 24 Hours (Table) 10/17/23 23:50 Blood Culture Gram Stain - Preliminary Blood
[2023-10-19] MEDS: LORazepam 2 MG/ML INJ IV PRN (14:56)
[2023-10-19] MEDS: METHADONE 5 MG TAB PO SCH (16:00)
[2023-10-19 16:22] LABS: Glucose,Whole Blood 147 mg/dL (70-110)
--- NOTE | 2023-10-19 17:13 | P.PN ---
Subjective Progress Note Date: 10/19/23 (delayed charting seen at 0930) Patient is a 43-year-old female who came in from [place] where she was for cocaine meth and opiate abuse, seizure disorder, and nicotine dependency who presented to the emergency department from [place] due to altered mentation. In the ER she underwent an extensive evaluation. On arrival she was tachycardic with a pulse of 105 and a blood pressure of 212/162. Initial laboratory analysis was remarkable for white blood cell count 15.6, hemoglobin 18.4, platelets 474, pH 7.5, glucose 301, lactic acid 7, calcium 11, AST 105, ALT 164, alkaline phosphatase 179, troponin 0.087. Urinalysis did not show signs of urinary tract infection. Urine drug screen was positive for methamphetamines, benzodiazepines, and cocaine. Influenza A/B/RSV/COVID-19 jayden ting was negative. Chest x-ray showed no acute process. CT head demonstrated no acute process or hemorrhage. CT thoracic aorta and CTA abdomen and pelvis normal lateral arteries of the abdomen and pelvis and normal aorta. EKG demonstrated sinus tachycardia with hyperacute T waves. In the ER she was given multiple doses of IV Ativan, 325 mg of aspirin, Zosyn, vancomycin, and 2 L of normal saline. Arrangements were made for admission. Patient was continued on Zosyn and Vanco as well as IV fluids. She was found to have gram positive bacteremia and her zosyn was stopped. ID was consulted. Echo showed preserved EF without valvular dysfunction. She continues to not feel well. She then does not answer any of my other questions regarding shortness of breath, pain, or nausea. She is withdrawn and pulled her sheet back over her head. I did discuss with her that she has a serious infection in her bloodstream likely caused by her injection drug use. She states her last use of injection drugs was approximately 1 week ago. She states she does not remember where she injected at and states she has no frequent location of injection Vital signs reviewed General: Nontoxic, no distress, appears at stated age Cardiovascular: S1S2 reg, no murmur Lungs: CTA bilateral, no rhonchi, no rales, no accessory muscle use Abdominal: Soft, nontender to palpation, no guarding Ext: No gross muscle atrophy, no edema b/l lower extremities, no contractures Neuro: CN II-XI grossly intact, no focal neuro deficits Psych: Awake, oriented, with drawn Assessment/Plan: Sepsisdue to gram positive bacteremia in the setting of polysubstance abuse- Fentanyl, cocaine, and amphetamines Acute metabolic encephalopathy l Hyperglycemia, improved -Continue with vancomycin day #2. Pharmacy dosing. Monitor for toxicity with creatinine and trough levels -Discontinue Zosyn -Repeat blood cultures in a.m. -Consult infectious disease -May need KJ if bacteremia remains persistent - NS at 130 cc/hr - A1c 5.7 -Repeat basic metabolic profile, CBC in a.m. HTN Emergency Type II NSTEMI due to HTN emergency -Cardiology note reviewed: Abnormal troponin secondary to hypertensive emergency and polysubstance abuse. Discontinue IV hydralazine and start amlodipine 5 mg daily. - increase norvasc to 10 mg daily due to BP elevation. Intractable pain secondary to opiate withdrawal -Start methadone 5 mg 3 times daily for pain. Hold for sedation -Catapres 0.1 mcg as needed for withdrawal symptoms -Motrin 600 mg 3 times daily for pain or fever -Ativan 1 mg every 4 hours as needed for agitation -Zofran 4 mg IV every 6 hours as needed for nausea and vomiting Transaminitis, improving Hepatitis C IgG positive - check Hep C qual RNA - Await liver US resulted - repeat CMP in AM Lactic acidosis, resolved Hypercalcemia, resolved Imaging: Echocardiogram reviewed which shows normal left ventricular systolic function with EF of 55 to 60% and no significant valvular abnormalities. Data Review: Labs reviewed from today include CBC and CMP which are remarkable for white blood cell count 13.6, sodium 136, potassium 3 magnesium 1.5, AST 62, ALT 60. DVT prophylaxis: Lovenox Anticipated discharge date: Pending clinical course Anticipated discharge place: Pending clinical course This dictation was prepared using nuvo[employer] voice recognition software. Though every attempt is made to correct errors during dictation some may still exist. Objective - Vital Signs Vital signs: Vital Signs Temp 98 F 10/19/23 16:00 Pulse 85 10/19/23 16:00 Resp 16 10/19/23 16:00 BP 188/96 10/19/23 16:00 Pulse Ox 98 10/19/23 16:00 FiO2 Intake & Output 10/18/23 10/19/23 10/19/23 18:59 06:59 18:59 Intake Total 110 Output Total 400 Balance -290 Weight 54.431 kg Intake: Oral 110 Output: Urine 400 Other: Voiding Method Bedside Commode Bedside Commode # Voids 1 # Bowel Movements 1 - Labs CBC & Chem 7: 10/19/23 08:01 10/19/23 08:01 Labs: Abnormal Lab Results - Last 24 Hours (Table) 10/18/23 10/18/23 10/18/23 Range/Units 10:28 17:55 20:44 WBC (3.8-10.6) k/uL Sodium (137-145) mmol/L Potassium (3.5-5.1) mmol/L Carbon Dioxide (22-30) mmol/L Creatinine (0.52-1.04) mg/dL POC Glucose (mg/dL) 127 H 122 H (70-110) mg/dL Magnesium (1.6-2.3) mg/dL AST (14-36) U/L ALT (4-34) U/L Hep C IgG Ab Reactive A (Non-Reactive) 10/19/23 10/19/23 10/19/23 Range/Units 08:01 08:01 11:16 WBC 13.6 H (3.8-10.6) k/uL Sodium 136 L (137-145) mmol/L Potassium 3.0 L (3.5-5.1) mmol/L Carbon Dioxide 21 L (22-30) mmol/L Creatinine 0.45 L (0.52-1.04) mg/dL POC Glucose (mg/dL) 146 H (70-110) mg/dL Magnesium 1.5 L (1.6-2.3) mg/dL AST 62 H (14-36) U/L ALT 80 H (4-34) U/L Hep C IgG Ab (Non-Reactive) 10/19/23 Range/Units 16:20 WBC (3.8-10.6) k/uL Sodium (137-145) mmol/L Potassium (3.5-5.1) mmol/L Carbon Dioxide (22-30) mmol/L Creatinine (0.52-1.04) mg/dL POC Glucose (mg/dL) 147 H (70-110) mg/dL Magnesium (1.6-2.3) mg/dL AST (14-36) U/L ALT (4-34) U/L Hep C IgG Ab (Non-Reactive) Microbiology - Last 24 Hours (Table) 10/18/23 00:05 Blood Culture - Preliminary Blood 10/17/23 23:50 Blood Culture Gram Stain - Preliminary Blood
[2023-10-19] MEDS: amLODIPine 5 MG TAB PO STA (17:20)
[2023-10-19 19:56] LABS: Glucose,Whole Blood 127 mg/dL (70-110)
[2023-10-19] MEDS: cloNIDine HCL 0.1 MG TAB PO PRN (20:41)
[2023-10-19] MEDS: levETIRAcetam IV 500 MG/5 ML VIAL IVP STA (20:49)
--- NOTE | 2023-10-19 21:02 | EEG ---
ELECTROENCEPHALOGRAM REPORT PREAMBLE: This is a 43-year-old female with history of polysubstance abuse, came to the hospital after seizure-like episode. The patient reports a history of seizures in the past, currently not on any seizure medication. EEG FINDINGS: This is a 21-channel digital EEG recorded with video component, utilizing 10/20 international system with referential and bipolar montages. Background consists of diffuse high-amplitude 7 hertz theta activity seen diffusely in bihemispheric region. Background does not seem to be reactive to eye opening or closing. Some myogenic twitches were seen periodically. The patient was given 1 mg Ativan IV, and about 5 minutes after the infusion, the background was replaced with somewhat low amplitude fast frequency beta activity. Different stages of sleep were not seen. No definitive focal or generalized epileptiform activity was seen. EKG channel showed no obvious arrhythmia. IMPRESSION: This is an abnormal EEG due to background slowing and disorganization of mild-to- moderate degree, suggestive of generalized cerebral dysfunction as can be seen with toxic metabolic encephalopathy. No definitive epileptiform activity was seen. After receiving Ativan 1 mg IV push, about 5 minutes afterwards, the background was replaced with low-voltage fast frequency beta activity due to medication effect. No electrographic seizure was recorded. MMODL / IJN: [id number] /
[2023-10-20 05:56] LABS: Glucose,Whole Blood 132 mg/dL (70-110)
[2023-10-20] MEDS: levETIRAcetam IV 500 MG/5 ML VIAL IVP SCH (08:14)
[2023-10-20] MEDS: amLODIPine 10 MG TAB PO SCH (08:14)
[2023-10-20 09:16] LABS: HCT 45.1 % (34.0-46.0); HGB 15.4 gm/dL (11.4-16.0); MCH 32.1 pg (25.0-35.0); MCHC 34.2 g/dL (31.0-37.0); MCV 93.7 fL (80.0-100.0); Mean Platelet Volume 7.8; Platelet Count 290 k/uL (150-450); RBC 4.82 m/uL (3.80-5.40); RDW 12.5 % (11.5-15.5); WBC 8.2 k/uL (3.8-10.6)
[2023-10-20 09:43] LABS: ALT 66 U/L (4-34); AST 54 U/L (14-36); African American GFR (CKD) >90 (>60 ml/min/1.73 sqM); Albumin 3.7 g/dL (3.5-5.0); Alkaline Phosphatase 104 U/L (38-126); Anion Gap 11 mmol/L; Blood Urea Nitrogen 5 mg/dL (7-17); Calcium 8.9 mg/dL (8.4-10.2); Carbon Dioxide 21 mmol/L (22-30); Chloride 107 mmol/L (98-107); Glucose 116 mg/dL (74-99); Non-African American GFR(CKD) >90 (>60 ml/min/1.73 sqM); Potassium 3.2 mmol/L (3.5-5.1); Sodium 139 mmol/L (137-145); Total Bilirubin 0.5 mg/dL (0.2-1.3); Total Protein 7.2 g/dL (6.3-8.2)
[2023-10-20] MEDS: VANCOMYCIN TROUGH DUE 1 EACH MISC MISCELLANE ONE (11:07)
--- NOTE | 2023-10-20 11:20 | P.PN ---
Subjective HISTORY OF PRESENT ILLNESS: This is a 43-year-old female with a past medical history significant for seizure disorder and polysubstance abuse. Patient does not follow with a composite worker. We have been asked to see the patient in consultation for elevated troponins. Patient examined at the bedside in the emergency room. Patient is lethargic and unable to provide any history at the time of examination. Patient is apparently at [place] for polysubstance abuse. She was brought to the hospital for altered mental status and concerns of continued drug use. Toxicology screen on admission positive for methamphetamines, amphetamines, benzodiazepines, and cocaine DIAGNOSTICS: - EKG reveals sinus mechanism with no signs of acute ischemia - Chest xray negative for acute process - Laboratory data: WBC 15.6. Hemoglobin 18.4. Platelet count 474. Sodium 143. Potassium 3.7. BUN 26. Creatinine 0.69. Lactic acid 7. Repeat 1.6. AST 1 05. ALT 164. Troponin 0.087. 0.157. 0.2-1. - Current home cardiac medications include none. - No previous echocardiogram, stress test, or cardiac catheterization available in EMR for review 10/19/2023 Patient examined this morning at the bedside. Patient is uncooperative with examination this morning. She denies any chest pain or pressure. Denies any shortness of breath. Blood cultures are preliminary positive for gram-positive cocci in clusters. White count today 13.6. Echocardiogram completed revealing ejection fraction 55 to 60% with no obvious evidence of vegetation. 10/20/2023 Patient examined this morning at the bedside. Patient remains lethargic. She denies any chest pain or pressure. She denies any shortness of breath. Blood cultures are positive for gram-positive cocci in clusters. Blood pressure is stable with a systolic between [id number]. PHYSICAL EXAM: VITAL SIGNS: Reviewed. GENERAL: Well-developed in no acute distress. HEENT: Head is normocephalic. Pupils are equal, round. Sclerae anicteric. Mucous membranes of the mouth are moist. Neck supple. No JVD or thyromegaly LUNGS: Respirations even and unlabored. Lungs essentially clear to auscultation bilaterally. HEART: Regular rate and rhythm. S1 and S2 heard. ABDOMEN: Soft. Nondistended. Nontender. EXTREMITIES: Normal range of motion. No clubbing or cyanosis. Peripheral pulses intact. No lower extremity edema NEUROLOGIC: Awake and alert. ASSESSMENT: Altered mental status Polysubstance abuse Abnormal troponins, type I OR unlikely, likely secondary to HTN emergency and polysubstance abuse Sepsis, etiology unclear Bacteremia, blood cultures positive for gram-positive cocci in clusters Abnormal UA Hypertensive emergency Lactic acidosis Elevated liver enzymes PLAN: Continue current dose of amlodipine. Continue to monitor blood pressure. Await finalization of blood cultures. Patient may require KJ. However, patient is not cooperative enough at this time for KJ. Further recommendations pending patient course Nurse practitioner note has been reviewed by physician. Signing provider agrees with the documented findings, assessment, and plan of care documented by PROJECT LEAD as a scribe. Objective - Vital Signs Vital signs: Vital Signs Temp 98.4 F 10/20/23 08:00 Pulse 79 10/20/23 08:00 Resp 17 10/20/23 08:00 BP 153/83 10/20/23 08:00 Pulse Ox 99 10/20/23 08:00 FiO2 Intake & Output 10/19/23 10/20/23 10/20/23 18:59 06:59 18:59 Intake Total 330 540 225 Output Total 400 Balance -70 540 225 Intake: Oral 330 540 225 Output: Urine 400 Other: Voiding Method Bedside Commode Bedside Commode Bedside Commode # Voids 1 # Bowel Movements 1 - Labs CBC & Chem 7: 10/20/23 08:09 10/20/23 08:09 Labs: Abnormal Lab Results - Last 24 Hours (Table) 10/19/23 10/19/23 10/19/23 Range/Units 11:16 16:20 19:54 Potassium (3.5-5.1) mmol/L Carbon Dioxide (22-30) mmol/L BUN (7-17) mg/dL Creatinine (0.52-1.04) mg/dL Glucose (74-99) mg/dL POC Glucose (mg/dL) 146 H 147 H 127 H (70-110) mg/dL AST (14-36) U/L ALT (4-34) U/L 10/20/23 10/20/23 Range/Units 05:54 08:09 Potassium 3.2 L (3.5-5.1) mmol/L Carbon Dioxide 21 L (22-30) mmol/L BUN 5 L (7-17) mg/dL Creatinine 0.42 L (0.52-1.04) mg/dL Glucose 116 H (74-99) mg/dL POC Glucose (mg/dL) 132 H (70-110) mg/dL AST 54 H (14-36) U/L ALT 66 H (4-34) U/L Microbiology - Last 24 Hours (Table) 10/18/23 00:05 Blood Culture - Preliminary Blood 10/17/23 23:50 Blood Culture Gram Stain - Preliminary Blood
[2023-10-20 11:23] LABS: Glucose,Whole Blood 95 mg/dL (70-110)
[2023-10-20] MEDS: POTASSIUM CHLORIDE ER 20 MEQ TAB.ER PO STA (11:36)
--- NOTE | 2023-10-20 12:04 | P.PN ---
Subjective Progress Note Date: 10/19/23 Patient was seen for a follow-up. Patient underwent EEG today. Patient received Ativan 1 mg IV. Now patient is very somnolent. Patient states that she had history of seizures about 4 in her lifetime, the first time was at age 21. She does not know if she is taking medication. Patient not telling history appropriately because of mentation. Telemetry monitoring showing sinus rhythm, sinus tachycardia in the 120s. There is a peaked T waves. Objective - Vital Signs Vital signs: Vital Signs Temp 98.4 F 10/20/23 08:00 Pulse 79 10/20/23 08:00 Resp 17 10/20/23 08:00 BP 153/83 10/20/23 08:00 Pulse Ox 99 10/20/23 08:00 FiO2 Intake & Output 10/19/23 10/20/23 10/20/23 18:59 06:59 18:59 Intake Total 330 540 225 Output Total 400 Balance -70 540 225 Intake: Oral 330 540 225 Output: Urine 400 Other: Voiding Method Bedside Commode Bedside Commode Bedside Commode # Voids 1 # Bowel Movements 1 - Exam Patient is very somnolent, states it is May and the year is 2022. Patient examination limited because of mentation. She received Ativan 1 mg IV recently. - Labs CBC & Chem 7: 10/20/23 08:09 10/20/23 08:09 Labs: Abnormal Lab Results - Last 24 Hours (Table) 10/19/23 10/19/23 10/20/23 Range/Units 16:20 19:54 05:54 Potassium (3.5-5.1) mmol/L Carbon Dioxide (22-30) mmol/L BUN (7-17) mg/dL Creatinine (0.52-1.04) mg/dL Glucose (74-99) mg/dL POC Glucose (mg/dL) 147 H 127 H 132 H (70-110) mg/dL AST (14-36) U/L ALT (4-34) U/L 10/20/23 Range/Units 08:09 Potassium 3.2 L (3.5-5.1) mmol/L Carbon Dioxide 21 L (22-30) mmol/L BUN 5 L (7-17) mg/dL Creatinine 0.42 L (0.52-1.04) mg/dL Glucose 116 H (74-99) mg/dL POC Glucose (mg/dL) (70-110) mg/dL AST 54 H (14-36) U/L ALT 66 H (4-34) U/L Microbiology - Last 24 Hours (Table) 10/18/23 00:05 Blood Culture - Preliminary Blood 10/17/23 23:50 Blood Culture Gram Stain - Preliminary Blood Assessment and Plan Assessment: * Patient presented with sudden onset of decrease in mentation and urinary incon tinence/nausea vomiting, while she was in rehab facility for polysubstance abuse. When EMS arrived, patient was in postictal state. Rule out seizure triggered from polysubstance abuse. * Reported history of seizure disorder. Patient admits to having seizure disorder, since age 21. Currently not on any seizure medication. She could not tell if her seizures were provoked from substance abuse in the past. * Altered mental status, likely due to toxic metabolic encephalopathy from polysubstance abuse. Patient may have hypertensive encephalopathy. Rule out postictal state. * Patient admits to snorting or shooting heroin, and snorting cocaine, off and on for "long time". However her urine is also positive for amphetamines and methamphetamines as well, besides being positive for cocaine and benzodiazepine. Patient does not know how she became positive on the amphetamines. Perhaps the drugs were laced with some other substance as well. * Nausea vomiting, likely due to polysubstance abuse * Lactic acidosis, rule out sepsis * Elevated LFTs * Mildly elevated troponins * ? UTI, with positive nitrite, negative leukocyte esterase Plan: * EEG was performed today. It was abnormal due to background slowing and disorganization of mild to moderate degree, suggestive of generalized cerebral dysfunction as can be seen with toxic metabolic encephalopathy. No definitive epileptiform activity was seen. After receiving Ativan 1 mg IV push, about 5 minutes afterwards, the background was replaced with low voltage fast frequency beta activity, due to medication effect. No electrographic seizure was recorded. * As patient mentioned that she has history of seizures, we will empirically place on Keppra 1000 mg IV x 1 dose followed by 500 mg twice daily. * We will follow clinically. * Control blood pressure * Watch for withdrawals from substance abuse. * Cardiology on board for elevated cardiac enzymes. * 2D echo revealed normal left ventricular size and systolic function with EF 55 to 60%. No obvious regional wall motion abnormalities. Normal left atrial size. No valvular abnormalities noted. * Neurological examination is completely nonfocal, except for mild encephalopathy, which is likely related to substance abuse/withdrawal versus postictal state.
--- NOTE | 2023-10-20 12:35 | P.CONS ---
History of Present Illness - Reason for Consult Consult date: 10/19/23 - History of Present Illness Patient is a 43-year-old female with a past medical history significant for seizure disorder and IV drug use patient was brought into the ER on 10/18/2023 for evaluation of mental status changes patient apparently was getting drug rehabilitation at the [facility] and apparent was only for 1 day patient last IV drug use about a week before admission to the hospital and injected into the right hand patient on presentation to the hospital did have a low-grade fever of 99.1 F patient was not tachycardic hypotensive or hypoxic she did have a white count of 15.6 with a left shift creatinine has been normal liver isms are elevated urine did not show any pyuria drug screen was positive for amphetamines methamphetamines benzos cocaine and also tested positive for hepatitis C influenza COVID and RSV PCR was negative patient did have a chest x- ray normal chest x-ray blood cultures came back positive with gram-positive cocci patient started on vancomycin infectious disease was consulted for further management of antibiotic therapy. Patient at the time my evaluation Sleepy but arousable has been complaining of pain and been unable to quantify it in further currently did not have an open wound or any drainage no nausea vomiting or diarrhea has been reported by the nursing staff Past Medical History Past Medical History: No Reported History, Seizure Disorder Additional Past Medical History / Comment(s): bilateral torn rotator cuffs surgery 2008, bilateral carpal tunnel. MRSA infection Right 5th toe. Open wound right 5th toe History of Any Multi-Drug Resistant Organisms: MRSA Year Discovered:: 07/10/2015 MDRO Source:: Right foot fifth digit Past Surgical History: Appendectomy, Section, Cholecystectomy, Orthopedic Surgery Additional Past Surgical History / Comment(s): EPILYPSY, BILATERAL TORN ROTATOR CUFFS Past Anesthesia/Blood Transfusion Reactions: No Reported Reaction Past Psychological History: No Psychological Hx Reported Smoking Status: Vaper Past Alcohol Use History: Rare Past Drug Use History: None Reported - Past Family History Father Family Medical History: CVA/TIA Additional Family Medical History / Comment(s): 2011 Mother Family Medical History: No Reported History Additional Family Medical History / Comment(s): arthritis Medications and Allergies Home Medications Medication Instructions Recorded Confirmed Type Acetaminophen Tab [Tylenol] 650 mg PO Q4H PRN MDD 4 doses 10/18/23 10/18/23 History Calcium/Mag/Zinc/Vit D3 1 tab PO TID PRN 10/18/23 10/18/23 History Chlorpheniramine Maleate 4 mg PO Q4H PRN 10/18/23 10/18/23 History [Chlor-Trimeton] Ibuprofen [Motrin] 600 mg PO Q6H PRN 10/18/23 10/18/23 History Loperamide HCl [Imodium A-D] 4 mg PO QID PRN MDD 8 TABS 10/18/23 10/18/23 History Mylanta 30 ml PO Q4H PRN 10/18/23 10/18/23 History Tigan 200mg/2ml 200 mg IM Q6H PRN 10/18/23 10/18/23 History Zofran 4mg/2ml 4 mg IM Q6H PRN 10/18/23 10/18/23 History buprenorphine HCL [Subutex] 2 - 4 mg SUBLINGUAL DIRECTED 10/18/23 10/18/23 History cloNIDine HCL [Catapres] 0.1 mg PO Q4H PRN 10/18/23 10/18/23 History ondansetron HCL [Zofran] 8 mg PO Q6HR PRN 10/18/23 10/18/23 History Allergies Allergy/AdvReac Type Severity Reaction Status Date / Time lidocaine Allergy Anaphylaxis Verified 10/18/23 08:13 codeine AdvReac Nausea & Verified 10/18/23 08:13 Vomiting Physical Exam Vitals: Vital Signs Temp Pulse Pulse Resp BP BP Pulse Ox 10/19/23 12:00 98.2 F 90 17 136/71 97 10/19/23 08:15 98.2 F 99 16 161/84 97 10/19/23 04:00 98.1 F 78 18 168/90 99 10/19/23 01:56 91 18 10/18/23 22:55 98.5 F 91 18 170/79 100 10/18/23 22:22 94 16 162/89 99 10/18/23 20:48 84 24 163/95 97 10/18/23 19:24 97.6 F 107 H 19 164/99 100 10/18/23 17:57 97 18 156/92 100 10/18/23 17:05 173/101 10/18/23 14:28 98.3 F 82 16 157/89 100 Intake and Output 10/18/23 10/19/23 10/19/23 22:59 06:59 14:59 Intake Total 110 Balance 110 Intake: Oral 110 Other: Voiding Method Bedside Commode Bedside Commode # Voids 1 # Bowel Movements 1 Weight 54.431 kg Results CBC & Chem 7: 10/20/23 08:09 10/20/23 08:09 Labs: Abnormal Lab Results - Last 24 Hours (Table) 10/18/23 10/18/23 10/18/23 Range/Units 10:28 15:08 17:55 WBC (3.8-10.6) k/uL Sodium (137-145) mmol/L Potassium (3.5-5.1) mmol/L Carbon Dioxide (22-30) mmol/L Creatinine (0.52-1.04) mg/dL POC Glucose (mg/dL) 127 H (70-110) mg/dL Magnesium (1.6-2.3) mg/dL AST (14-36) U/L ALT (4-34) U/L Troponin I 0.154 H* (0.000-0.034) ng/mL Hep C IgG Ab Reactive A (Non-Reactive) 10/18/23 10/19/23 10/19/23 Range/Units 20:44 08:01 08:01 WBC 13.6 H (3.8-10.6) k/uL Sodium 136 L (137-145) mmol/L Potassium 3.0 L (3.5-5.1) mmol/L Carbon Dioxide 21 L (22-30) mmol/L Creatinine 0.45 L (0.52-1.04) mg/dL POC Glucose (mg/dL) 122 H (70-110) mg/dL Magnesium 1.5 L (1.6-2.3) mg/dL AST 62 H (14-36) U/L ALT 80 H (4-34) U/L Troponin I (0.000-0.034) ng/mL Hep C IgG Ab (Non-Reactive) 10/19/23 Range/Units 11:16 WBC (3.8-10.6) k/uL Sodium (137-145) mmol/L Potassium (3.5-5.1) mmol/L Carbon Dioxide (22-30) mmol/L Creatinine (0.52-1.04) mg/dL POC Glucose (mg/dL) 146 H (70-110) mg/dL Magnesium (1.6-2.3) mg/dL AST (14-36) U/L ALT (4-34) U/L Troponin I (0.000-0.034) ng/mL Hep C IgG Ab (Non-Reactive) Microbiology - Last 24 Hours (Table) 10/18/23 00:05 Blood Culture - Preliminary Blood 10/17/23 23:50 Blood Culture Gram Stain - Preliminary Blood Assessment and Plan Plan: 1patient with a gram-positive bacteremia source likely IV drug use and possibly cellulitis to the right hand site of previous injection but with evidence of any fluctuation or induration to be suspicious for an abscess 2blood cultures will be repeated document clearance of bacteremia to make sure no evidence of any persistent bacteremia suspicious for endovascular infection 3check inflammatory markers 4did have elevated liver enzymes related to chronic hepatitis C in this patient with a history of drug use treatment option as an outpatient 5-leukocytosis more likely to #1 6vancomycin pharmacy to dose target trough of 15 while watching kidney function and Vanco trough closely We will follow on clinical condition and cultures to further adjust medication if needed Thank you for this consultation we will follow the patient along with you Dictation was produced using [email or web address] dictation software. please excuse any grammatical, word or spelling errors. Time with Patient: Greater than 30
--- NOTE | 2023-10-20 16:10 | US ---
EXAMINATION TYPE: US liver DATE OF EXAM: 10/18/2023 COMPARISON: CTA 10/17/23 CLINICAL INDICATION: Female, 43 years old with history of transaminitis; TECHNIQUE: Multiple sonographic images of the right upper quadrant are obtained. FINDINGS: EXAM MEASUREMENTS: Liver Length: 14.4 cm Gallbladder: Surgically absent CBD: 0.20 cm Right Kidney: 8.9 x 4.1 x 4.2 cm FISH BAIT PICKER NOTES:Difficult exam due to patient being uncooperative Pancreas: WNL as visualized Liver: Slightly echogenic appearance to the portal triads/periportal fat. No focal lesions seen. Gallbladder: Surgically absent Evidence for sonographic Diez's sign: No CBD: wnl Right Kidney: Slight increased echogenicity. No hydronephrosis. Prominent fluid in the stomach. IMPRESSION: 1. Slightly echogenic appearance to the periportal fat/portal triads. This may be seen with the ponce y robert appearance of hepatitis. 2. Prominent fluid in the stomach may be due to recent liquid ingestion. Correlate to exclude gastrit is/gastroenteritis. 3. Status post cholecystectomy. No biliary ductal dilatation. 4. Slightly echogenic right kidney parenchyma. Correlate to exclude any underlying acute kidney injur y.
--- NOTE | 2023-10-20 16:28 | P.PN ---
Subjective Progress Note Date: 10/20/23 Principal diagnosis: Reason for follow-up is bacteremia Patient is a 43-year-old female with a past medical history significant for seizure disorder and IV drug use patient was brought into the ER on 10/18/2023 for evaluation of mental status changes, patient have history of IV drug use and was at the drug rehabilitation center he did have low-grade fever and a positive blood culture. On today's visit that is 10/20/2023, Patient is afebrile patient is currently on room air and denies having any shortness of breath, the patient denies any chest pain or cough, the patient denies any nausea vomiting, pain to the right hand has decreased in intensity. Patient white count is 8.2, creatinine 0.42 final other blood cultures pending Objective - Vital Signs Vital signs: Vital Signs Temp 98.3 F 10/20/23 12:00 Pulse 87 10/20/23 12:00 Resp 17 10/20/23 12:00 BP 145/84 10/20/23 12:00 Pulse Ox 99 10/20/23 12:00 FiO2 Intake & Output 10/19/23 10/20/23 10/20/23 18:59 06:59 18:59 Intake Total 330 540 225 Output Total 400 Balance -70 540 225 Intake: Oral 330 540 225 Output: Urine 400 Other: Voiding Method Bedside Commode Bedside Commode Bedside Commode # Voids 1 # Bowel Movements 1 - Exam GENERAL DESCRIPTION: Middle-aged female lying in bed in no distress RESPIRATORY SYSTEM: Unlabored breathing , decreased breath sounds at bases HEART: S1 S2 regular rate and rhythm , ABDOMEN: Soft , no tenderness EXTREMITIES: No edema feet - Labs CBC & Chem 7: 10/20/23 08:09 10/20/23 08:09 Labs: Abnormal Lab Results - Last 24 Hours (Table) 10/19/23 10/19/23 10/20/23 Range/Units 16:20 19:54 05:54 Potassium (3.5-5.1) mmol/L Carbon Dioxide (22-30) mmol/L BUN (7-17) mg/dL Creatinine (0.52-1.04) mg/dL Glucose (74-99) mg/dL POC Glucose (mg/dL) 147 H 127 H 132 H (70-110) mg/dL AST (14-36) U/L ALT (4-34) U/L 10/20/23 Range/Units 08:09 Potassium 3.2 L (3.5-5.1) mmol/L Carbon Dioxide 21 L (22-30) mmol/L BUN 5 L (7-17) mg/dL Creatinine 0.42 L (0.52-1.04) mg/dL Glucose 116 H (74-99) mg/dL POC Glucose (mg/dL) (70-110) mg/dL AST 54 H (14-36) U/L ALT 66 H (4-34) U/L Microbiology - Last 24 Hours (Table) 10/18/23 00:05 Blood Culture - Preliminary Blood 10/17/23 23:50 Blood Culture Gram Stain - Preliminary Blood Assessment and Plan (1) Bacteremia Current Visit: Yes Status: Acute Code(s): R78.81 - BACTEREMIA SNOMED Code(s): 3543114 Plan: 1patient with a gram-positive bacteremia source likely IV drug use and possibly cellulitis to the right hand site of previous injection but with evidence of any fluctuation or induration to be suspicious for an abscess 2blood cultures has been repeated document clearance of bacteremia to make sure no evidence of any persistent bacteremia suspicious for endovascular infection 3did have elevated liver enzymes related to chronic hepatitis C in this patient with a history of drug use treatment option as an outpatient 4patient to continue withvancomycin pharmacy to dose target trough of 15 while watching kidney function and Vanco trough closely Dictation was produced using [email or web address] dictation software. please excuse any grammatical, word or spelling errors. Time with Patient: Less than 30
[2023-10-20 16:40] LABS: Glucose,Whole Blood 228 mg/dL (70-110)
[2023-10-20] MEDS: IBUPROFEN 600 MG TAB PO PRN (17:20)
--- NOTE | 2023-10-20 19:09 | P.PN ---
Subjective Progress Note Date: 10/20/23 (delayed charting seen at 0945) Patient is a 43-year-old female who came in from [place] where she was for cocaine meth and opiate abuse, seizure disorder, and nicotine dependency who presented to the emergency department from [place] due to altered mentation. In the ER she underwent an extensive evaluation. On arrival she was tachycardic with a pulse of 105 and a blood pressure of 212/162. Initial laboratory analysis was remarkable for white blood cell count 15.6, hemoglobin 18.4, platelets 474, pH 7.5, glucose 301, lactic acid 7, calcium 11, AST 105, ALT 164, alkaline phosphatase 179, troponin 0.087. Urinalysis did not show signs of urinary tract infection. Urine drug screen was positive for methamphetamines, benzodiazepines, and cocaine. Influenza A/B/RSV/COVID-19 jayden ting was negative. Chest x-ray showed no acute process. CT head demonstrated no acute process or hemorrhage. CT thoracic aorta and CTA abdomen and pelvis normal lateral arteries of the abdomen and pelvis and normal aorta. EKG demonstrated sinus tachycardia with hyperacute T waves. In the ER she was given multiple doses of IV Ativan, 325 mg of aspirin, Zosyn, vancomycin, and 2 L of normal saline. Arrangements were made for admission. Patient was continued on Zosyn and Vanco as well as IV fluids. She was found to have gram positive bacteremia and her zosyn was stopped. ID was consulted. Echo showed preserved EF without valvular dysfunction. Methadone 5 mg three times daily. Patient asking for increased methadone dosing, stating that she is detoxing. I explained to the patinet that it is hospital policy that I cannot start metahodone for detox but that it can be used for pain. She was on methadon and was being transitioned to subaxone at [facility]. pre sales technical consultant checked with m ethadone clincal and last fill was over 1 month ago. Vital signs reviewed General: Nontoxic, no distress, appears at stated age Cardiovascular: S1S2 reg, no murmur Lungs: CTA bilateral, no rhonchi, no rales, no accessory muscle use Abdominal: Soft, nontender to palpation, no guarding Ext: No gross muscle atrophy, no edema b/l lower extremities, no contractures Neuro: CN II-XI grossly intact, no focal neuro deficits Psych: Awake, oriented, withdrawn Assessment/Plan: Sepsisdue to gram positive bacteremia in the setting of polysubstance abuse- Fentanyl, cocaine, and amphetamines Acute metabolic encephalopathy l Hyperglycemia, improved -Continue with vancomycin day #3. Pharmacy dosing. Monitor for toxicity with creatinine and trough levels -Await repeat blood cultures -Infectious disease consultation reviewed: Continue with vancomycin. -May need KJ if bacteremia remains persistent - NS at 75 cc/hr - A1c 5.7 -Repeat basic metabolic profile, CBC in a.m. HTN Emergency Type II NSTEMI due to HTN emergency -Cardiology consultation reviewed: Continue with amlodipine and monitor blood pressures - Norvasc to 10 mg daily Intractable pain secondary to opiate withdrawal -Methadone 5 mg 3 times daily for pain. Hold for sedation -Catapres 0.1 mcg as needed for withdrawal symptoms -Motrin 600 mg 3 times daily for pain or fever -Ativan 1 mg every 4 hours as needed for agitation -Zofran 4 mg IV every 6 hours as needed for nausea and vomiting Transaminitis, improving Active hepatitis C infection - outpatient follow-up for Hep C Lactic acidosis, resolved Hypercalcemia, resolved Imaging: Echocardiogram reviewed which shows normal left ventricular systolic function with EF of 55 to 60% and no significant valvular abnormalities. Liver ultrasound: Slightly echogenic appearance consistent with hepatitis, prominent fluid in the stomach became Data Review: Labs reviewed from today include CBC and basic metabolic profile which are remarkable for potassium 3.2 and BUN of 5, AST 54, ALT 66 Quantitative hepatitis C RNA positive DVT prophylaxis: Lovenox Anticipated discharge date: Pending clinical course Anticipated discharge place: Pending clinical course This dictation was prepared using [employer] voice recognition software. Though every attempt is made to correct errors during dictation some may still exist. Objective - Vital Signs Vital signs: Vital Signs Temp 99 F 10/20/23 16:00 Pulse 80 10/20/23 16:00 Resp 16 10/20/23 16:00 BP 130/86 10/20/23 16:00 Pulse Ox 98 10/20/23 16:00 FiO2 Intake & Output 10/20/23 10/20/23 10/21/23 06:59 18:59 06:59 Intake Total 540 672 Balance 540 672 Intake: Oral 540 672 Other: Voiding Method Bedside Commode Bedside Commode # Voids 1 5 # Bowel Movements 1 - Labs CBC & Chem 7: 10/20/23 08:09 10/20/23 08:09 Labs: Abnormal Lab Results - Last 24 Hours (Table) 10/19/23 10/19/23 10/20/23 Range/Units 17:22 19:54 05:54 Potassium (3.5-5.1) mmol/L Carbon Dioxide (22-30) mmol/L BUN (7-17) mg/dL Creatinine (0.52-1.04) mg/dL Glucose (74-99) mg/dL POC Glucose (mg/dL) 127 H 132 H (70-110) mg/dL AST (14-36) U/L ALT (4-34) U/L HCV RNA Qual (PCR) DETECTED A (Not detected) 10/20/23 10/20/23 Range/Units 08:09 16:38 Potassium 3.2 L (3.5-5.1) mmol/L Carbon Dioxide 21 L (22-30) mmol/L BUN 5 L (7-17) mg/dL Creatinine 0.42 L (0.52-1.04) mg/dL Glucose 116 H (74-99) mg/dL POC Glucose (mg/dL) 228 H (70-110) mg/dL AST 54 H (14-36) U/L ALT 66 H (4-34) U/L HCV RNA Qual (PCR) (Not detected) Microbiology - Last 24 Hours (Table) 10/18/23 00:05 Blood Culture - Preliminary Blood
[2023-10-20 20:08] LABS: Glucose,Whole Blood 100 mg/dL (70-110)
[2023-10-20] MEDS: SODIUM CHLORIDE 0.9% 1,000 ML IV SCH (21:06)
[2023-10-20 21:11] VITALS: BP 130/73; PULSE 74; RESP 19; TEMP 98.7
--- NOTE | 2023-10-21 07:37 | P.DS ---
Providers Date of admission: 10/18/23 03:00 Expected date of discharge: 10/21/23 Attending physician: Otilio Haro MD Consults: 10/18/23 01:50 Consult Physician Routine Consulting Provider: [facility] Consult Reason/Comments: elevated troponin Do you want consulting provider notified?: Yes Consult Physician Routine Consulting Provider: Nasir Enciso Consult Reason/Comments: AMS Do you want consulting provider notified?: Yes 10/19/23 10:26 Consult Physician Routine Consulting Provider: Wilder Miranda Consult Reason/Comments: bacteremia, IVDA Do you want consulting provider notified?: Yes Primary care physician: Stated None Hospital Course: Discharge Diagnosis: Patient left AGAINST MEDICAL ADVICE. This is a summary of care not a discharge s quoc. Sepsis due to gram positive bacteremia in the setting of polysubstance abuse- Fentanyl, cocaine, and amphetamines Acute metabolic encephalopathy Hyperglycemia, improved HTN Emergency Type II NSTEMI due to HTN emergency Intractable pain secondary to opiate withdrawal Transaminitis, improving Active hepatitis C infection Lactic acidosis, resolved Hypercalcemia, resolved Hospital Course: Patient is a 43-year-old female who came in from [place] where she was for cocaine meth and opiate abuse, seizure disorder, and nicotine dependency who presented to the emergency department from [place] due to altered mentation. In the ER she underwent an extensive evaluation. On arrival she was tachycardic with a pulse of 105 and a blood pressure of 212/162. Initial laboratory analysis was remarkable for white blood cell count 15.6, hemoglobin 18.4, platelets 474, pH 7.5, glucose 301, lactic acid 7, calcium 11, AST 105, ALT 164, alkaline phosphatase 179, troponin 0.087. Urinalysis did not show signs of urinary tract infection. Urine drug screen was positive for methamphetamines, benzodiazepines, and cocaine. Influenza A/B/RSV/COVID-19 testing was negative. Chest x-ray showed no acute process. CT head demonstrated no acute process or hemorrhage. CT thoracic aorta and CTA abdomen and pelvis normal lateral arteries of the abdomen and pelvis and normal aorta. EKG demonstrated sinus tachycardia with hyperacute T waves. In the ER she was given multiple doses of IV Ativan, 325 mg of aspirin, Zosyn, vancomycin, and 2 L of normal saline. Arrangements were made for admission. Patient was continued on Zosyn and Vanco as well as IV fluids. She was found to have gram positive bacteremia and her zosyn was stopped. ID was consulted. Echo showed preserved EF without valvular dysfunction. Methadone 5 mg three times daily. Patient was requesting increased methadone dosing and did not want to be restarted on buprenorphine. I explained that hospital policy is that metahdone can be used for pain, but not for detox. We attempted to verify her outpatient methadone dosing but patient has not received any from the [facility] in 2 months and there fore methodone 40 mg could not be restarted. Per nursing notes state patient left against medical advice on 10/20/23 at 2050. Unfortunately we were not contacted prior to the patient leaving AGAINST MEDICAL ADVICE. Therefore we were unable to send her with any medications that could help her be more successful outside of the hospital such as antibiotics. Patient left AMA on 10/20/23. This dictation was prepared using [employer] voice recognition software. Though every attempt is made to correct errors during dictation some may still exist. Patient Condition at Discharge: Undetermined Plan - Discharge Summary Discharge Rx Participant: Yes New Discharge Prescriptions: No Action Zofran 4mg/2ml 4 mg IM Q6H PRN PRN Reason: Nausea And Vomiting Acetaminophen Tab [Tylenol] 650 mg PO Q4H PRN MDD 4 doses PRN Reason: Pain buprenorphine HCL [Subutex] 2 - 4 mg SUBLINGUAL DIRECTED Ibuprofen [Motrin] 600 mg PO Q6H PRN PRN Reason: Pain Chlorpheniramine Maleate [Chlor-Trimeton] 4 mg PO Q4H PRN PRN Reason: Allergy Symptoms ondansetron HCL [Zofran] 8 mg PO Q6HR PRN PRN Reason: Nausea And Vomiting Tigan 200mg/2ml 200 mg IM Q6H PRN PRN Reason: Vomiting Loperamide HCl [Imodium A-D] 4 mg PO QID PRN MDD 8 TABS PRN Reason: LOOSE STOOLS Mylanta 30 ml PO Q4H PRN PRN Reason: Gi Upset cloNIDine HCL [Catapres] 0.1 mg PO Q4H PRN PRN Reason: WITHDRAW Calcium/Mag/Zinc/Vit D3 1 tab PO TID PRN PRN Reason: CRAMPS Discharge Medication List Acetaminophen Tab [Tylenol] 650 mg PO Q4H PRN MDD 4 doses 10/18/23 [History] Calcium/Mag/Zinc/Vit D3 1 tab PO TID PRN 10/18/23 [History] Chlorpheniramine Maleate [Chlor-Trimeton] 4 mg PO Q4H PRN 10/18/23 [History] Ibuprofen [Motrin] 600 mg PO Q6H PRN 10/18/23 [History] Loperamide HCl [Imodium A-D] 4 mg PO QID PRN MDD 8 TABS 10/18/23 [History] Mylanta 30 ml PO Q4H PRN 10/18/23 [History] Tigan 200mg/2ml 200 mg IM Q6H PRN 10/18/23 [History] Zofran 4mg/2ml 4 mg IM Q6H PRN 10/18/23 [History] buprenorphine HCL [Subutex] 2 - 4 mg SUBLINGUAL DIRECTED 10/18/23 [History] cloNIDine HCL [Catapres] 0.1 mg PO Q4H PRN 10/18/23 [History] ondansetron HCL [Zofran] 8 mg PO Q6HR PRN 10/18/23 [History] Follow up Appointment(s)/Referral(s): None,Stated [Primary Care Provider] - 1-2 days Discharge Disposition: LEFT AGAINST MEDICAL ADVICE
== END 2023-10-20 21:23 | disposition left against medical advice (07) | DRG 720 ==
LOC: EC 22:39 → 3SCARD 10-18 03:00
PROVIDERS: ADMIT Internal Medicine; ATTEND Internal Medicine
PROC: 4A10X4Z Monitoring of Central Nervous Electrical Activity, External Approach (ICD-10-PCS; principal; 2023-10-19)
DX: A41.89 Other specified sepsis (principal); I16.1 Hypertensive emergency; G92.8 Other toxic encephalopathy; B19.20 Unspecified viral hepatitis C without hepatic coma; I67.4 Hypertensive encephalopathy; E87.20 Acidosis, unspecified; E83.52 Hypercalcemia; L98.9 Disorder of the skin and subcutaneous tissue, unspecified; F15.10 Other stimulant abuse, uncomplicated; F14.10 Cocaine abuse, uncomplicated; R73.9 Hyperglycemia, unspecified; R74.01 Elevation of levels of liver transaminase levels; E86.0 Dehydration; F11.23 Opioid dependence with withdrawal; G40.909 Epilepsy, unspecified, not intractable, without status epilepticus; I21.A1 Myocardial infarction type 2; N39.0 Urinary tract infection, site not specified; R32 Unspecified urinary incontinence; Z53.29 Procedure and treatment not carried out because of patient's decision for other reasons; Z86.14 Personal history of Methicillin resistant Staphylococcus aureus infection
CPT/HCPCS: 36415; 70450; 71046; 71275; 74174; 76705; 80053; 80074; 80143; 80179; 80202; 80306; 80320; 81001; 82009; 82140; 82607; 82746; 82803; 83036; 83605; 83735; 84484; 85025; 85027; 85610; 85730; 87040; 87521; 87636; 93005; 93306; 95816; 96361; 96365; 96366; 96368; 96372; 96375; 96376; 99291